=== PATIENT | female | born 1940 | race Two or more races ===

== ENCOUNTER 2021-05-01 23:01 | Inpatient (IN) | payer OTHER ==
[~2021-05-01] VITALS: Ht 160 cm; Wt 54.4 kg
--- NOTE | 2021-05-01 23:29 | NUR ---
BIBA FROM HOME ITALIAN SPEAKING, PT C/O LLQ PAIN X 2HOURS WITH SOB X 1 DAY. PT PLACED ON NC 6 LITER O2. CONNECTED TO MONITOR
[2021-05-02] VITALS (40 sets, daily range): BP systolic 51–160; BP diastolic 12–121
[2021-05-02] MEDS ORDERED: ONDANSETRON HCL/PF 4 MG/2 ML VIAL IVP ONE
[2021-05-02] MEDS ORDERED: HYDROMORPHONE INJ 2 MG/ML DISP.SYRIN IV ONE
[2021-05-02] MEDS ORDERED: ONDANSETRON HCL/PF 4 MG/2 ML VIAL ONE ×2 (00:15→13:29)
--- NOTE | 2021-05-02 00:30 | NUR ---
COVID SWAB COLLECTED AND SENT.
--- NOTE | 2021-05-02 00:33 | NUR ---
PT BACK FROM CT
[2021-05-02] MEDS ORDERED: HYDROMORPHONE INJ 2 MG/ML DISP.SYRIN ONE ×2 (00:39→04:06)
[2021-05-02 00:55] LABS: BASOPHILS % (AUTO) 0.3 % (0.0-2.0); EOSINOPHILS % (AUTO) 0.1 % (0.0-6.0); HEMATOCRIT 27 % (33-45); HEMOGLOBIN 8.7 g/dL (11.5-14.8); LYMPHOCYTES # (AUTO) 0.4 K/uL (0.8-4.8); LYMPHOCYTES % (AUTO) 7.7 % (20.0-44.0); MEAN CORPUSCULAR HGB CONC 32 g/dl (31.0-36.0); MEAN CORPUSCULAR VOLUME 82 fL (82-100); MONOCYTES # (AUTO) 0.1 K/uL (0.1-1.30); NEUTROPHILS % (AUTO) 89.9 % (43.0-81.0); PLATELET COUNT (AUTO) 688 K/uL (150-450); RED BLOOD CELL COUNT(AUTO) 3.26 MIL/uL (4.0-5.2); WHITE BLOOD COUNT (AUTO) 5.5 K/uL (4.3-11.0)
--- NOTE | 2021-05-02 00:56 | NUR ---
URINE COLLECTED AND SENT TO LAB
[2021-05-02 01:13] LABS: ALANINE AMINOTRANSFERASE 9 U/L (12-78); ALBUMIN 2.8 g/dL (3.4-5.0); ALKALINE PHOSPHATASE 74 U/L (46-116); ASPARTATE AMINOTRANSFERASE 11 U/L (15-37); BILIRUBIN,DIRECT 0.1 mg/dL (0.0-0.2); BILIRUBIN,TOTAL 0.3 mg/dL (0.2-1.0); CALCIUM, SERUM 8.5 mg/dL (8.5-10.1); CARBON DIOXIDE 33 mmol/L (21-32); CREATININE 1.1 mg/dL (0.6-1.3); LIPASE 283 U/L (73-393); TOTAL PROTEIN, SERUM 6.6 g/dL (6.4-8.2); UREA NITROGEN, BLOOD 18 mg/dL (7-18)
[2021-05-02 01:18] LABS: CHLORIDE 91 mmol/L (98-107); SODIUM SERUM 136 mmol/L (136-145)
[2021-05-02 01:22] LABS: POTASSIUM 2.4 mmol/L (3.5-5.1)
[2021-05-02 01:23] LABS: GLUCOSE 476 mg/dL (74-106)
[2021-05-02] MEDS ORDERED: IV NS 0.9% 250 ML IV ONE (01:41)
[2021-05-02] MEDS ORDERED: CT SWABBABLE VALVE TRANS SET 1 EA INFUS.SET MC ONE (01:41)
[2021-05-02] MEDS ORDERED: IOHEXOL-350 100 ML VIAL IV ONE (01:41)
--- NOTE | 2021-05-02 01:50 | NUR ---
PT PLACED ON NRB MASK 15L
[2021-05-02] MEDS ORDERED: IV PREMIX 0.45% NS + KCL 1,000 ML IV ONE (02:00)
[2021-05-02] MEDS ORDERED: POTASSIUM CHLORIDE 20 MEQ TAB.PRT.SR PO ONE ×2 (02:00→02:02)
--- NOTE | 2021-05-02 02:12 | NUR ---
PT OUT FOR CT ANGIO
--- NOTE | 2021-05-02 02:50 | NUR ---
PAGED EPIC FOR PANEL.
[2021-05-02] MEDS ORDERED: PIPERACILLIN /TAZOBACTAM 3.375 G VIAL IV ONE (02:55)
[2021-05-02] MEDS ORDERED: IV LR 1000 ML 1,000 ML IV ONE ×2 (03:00→03:30)
[2021-05-02] MEDS ORDERED: PIPERACILLIN /TAZOBACTAM 3.375 G in IV D5W 50 ML IV ONE (03:00)
--- NOTE | 2021-05-02 03:10 | NUR ---
EKG COMPLETED AT BEDSIDE
--- NOTE | 2021-05-02 03:13 | NUR ---
PAGED SIDRA DIRECTLY, NO ANSWER. MESSAGE IN VOICEMAIL WAS LEFT.
[2021-05-02 03:14] LABS: BILIRUBIN,URINE NEGATIVE (NEGATIVE); COLOR,URINE YELLOW (YELLOW); LEUKOCYTE ESTERASE ,URINE MODERATE (NEGATIVE); NITRITE, URINE NEGATIVE (NEGATIVE); PROTEIN,URINE NEGATIVE (NEGATIVE); UGLUCOSE >=1000 mg/dL (NEGATIVE); UROBILINOGEN,URINE 0.2 EU/dL (0.2)
[2021-05-02] MEDS ORDERED: Z GUARD REMEDY 4 OZ OINT TP PRN ×2 (03:30→04:15)
[2021-05-02] MEDS ORDERED: ACETAMINOPHEN 325 MG TABLET PO PRN ×2 (03:30→04:45)
[2021-05-02] MEDS ORDERED: ONDANSETRON HCL/PF 4 MG/2 ML VIAL IVP PRN ×2 (03:30→04:45)
[2021-05-02] MEDS ORDERED: HYDROMORPHONE INJ 2 MG/ML DISP.SYRIN IV PRN (03:30)
--- NOTE | 2021-05-02 03:39 | NUR ---
DR. FRIEND AT BEDSIDE. INFORMED CONSENT OBTAINED.
[2021-05-02] MEDS ORDERED: ROCURONIUM BROMIDE 50 MG/5 ML ONE (04:06)
[2021-05-02] MEDS ORDERED: ANESTHESIA TRAY IN PYXIS 1 EA TRAY MC ONE (04:06)
--- NOTE | 2021-05-02 04:40 | NUR ---
PATIENT TAKEN TO OR WITH RN ESCORT VIA GURNEY.
[2021-05-02] MEDS ORDERED: LIDOCAINE 1%-EPI 1:100,000 20 ML VIAL ONE (05:03)
[2021-05-02] MEDS ORDERED: BUPIVACAINE 0.5 % PF 150 MG/30 ML VIAL ONE (05:03)
[2021-05-02] MEDS ORDERED: MIDAZOLAM HCL 2 MG/2ML VIAL ONE (05:16)
[2021-05-02] MEDS ORDERED: NOREPINEPHRINE 4 MG/4 ML AMPUL IV ONE ×2 (05:25→05:52)
[2021-05-02] MEDS ORDERED: HYDROCORTISONE SOD SUCCINATE 100 MG/2 ML VIAL ONE (05:26)
[2021-05-02] MEDS ORDERED: ALBUTEROL FS 2.5 MG/3 ML VIAL.NEB ONE (05:27)
[2021-05-02] MEDS ORDERED: PIPERACILLIN /TAZOBACTAM 3.375 G in IV D5W 50 ML IV SCH (06:00)
[2021-05-02] MEDS ORDERED: methylPREDNISolone SOD SUCC 125 MG/2ML VIAL ONE (06:06)
--- NOTE | 2021-05-02 06:45 | NUR ---
ICU/RN: RECEIVED PT FROM OR ACCOMPANIED BY OR TEAM, DR. FRIEND, ANESTHESIOLOGIST DR. HYATT, AND REPARATORY TEAM. PT ORALLY INTUBATED SIZE 7 ETT 21CM AT THE LIP SECURED BY RESPIRATORY THERAPIST. STAT CRX AND ABG ORDERED. ORDERED RECEIVED FROM DR. HYATT AND DR. FRIEND. RIGHT AC #18 GAUGE IV INFUSING LEVO @0.1MCG/KG/HR. LACTATED RINGERS INFUSING WIDE OPEN. PT NOTED WITH 4 LAPAROSCOPIC INCISIONS AND 1 BRANDON DRAIN 70ML SEROSANGUINEOUS DRAINAGE EMPTIED. KENT CATH TO GRAVITY CLEAR YELLOW URINE 700ML EMPTIED. NGT PLACED AWAITING CXR FOR PLACEMENT. BED CLEVE LOWEST LOCKED POSITION. SIDE RAILS UP x2. NEW ORDERS ENDORSED TO EDGAR HE.
[2021-05-02 06:56] LABS: BACTERIA,URINE Moderate /HPF (None Seen); SQUAMOUS EPITHELIAL CELL,UR Few /HPF (None Seen)
[2021-05-02] MEDS ORDERED: PROPOFOL 100 ML IV PRN (07:00)
--- NOTE | 2021-05-02 07:01 | NUR ---
RT 6:40AM Patient transferred from OR to ICU 257-1 on vent. OR Doctor placed patient on given settings. Cable plugged into red outlet. Ambu bag at bed side. ET 7.0, 22 at lip.
--- NOTE | 2021-05-02 07:22 | NUR ---
RN NOTE PATIENT RECEIVED IN BED, INTUBATED ON A VENT, SATURATING AT 86%, RT AT BEDSIDE. PATIENT SEDATED. BRANDON DRAIN ON RIGHT ABD PATENT AND DRAINING CLEAR SANGUINEOUS DRAINAGE. L NARE NGT IN PLACE, WAITING ON PLACEMENT CONFIRMATION. LEFT AC AND RIGHT FA IV IN PLACE. BED LOCKED AND IN LOWEST POSITION, 3 SIDE RAILS UP, CALL LIGHT WITHIN REACH. WILL CONTINUE TO MONITOR.
[2021-05-02] MEDS: IV LR 1000 ML 1,000 ML IV PRN ×3 (07:50→20:47)
[2021-05-02] MEDS ORDERED: NOREPINEPHRINE 8 MG in IV NS 0.9% 242 ML IV PRN (08:00)
[2021-05-02] MEDS: PANTOPRAZOLE 40 MG VIAL IV SCH ×2 (08:24→16:58)
[2021-05-02] MEDS ORDERED: PANTOPRAZOLE 40 MG VIAL IV SCH ×2 (09:00)
[2021-05-02 09:29] LABS: BASOPHILS % (AUTO) 0.2 % (0.0-2.0); HEMATOCRIT 28 % (33-45); HEMOGLOBIN 8.9 g/dL (11.5-14.8); LYMPHOCYTES # (AUTO) 0.2 K/uL (0.8-4.8); LYMPHOCYTES % (AUTO) 4.8 % (20.0-44.0); MEAN CORPUSCULAR HGB CONC 32 g/dl (31.0-36.0); MEAN CORPUSCULAR VOLUME 84 fL (82-100); MONOCYTES # (AUTO) 0.2 K/uL (0.1-1.30); MONOCYTES % (AUTO) 4.3 % (2.0-12.0); NEUTROPHILS # (AUTO) 3.5 K/uL (1.8-8.9); NEUTROPHILS % (AUTO) 90.7 % (43.0-81.0); PLATELET COUNT (AUTO) 470 K/uL (150-450); RED BLOOD CELL COUNT(AUTO) 3.36 MIL/uL (4.0-5.2); WHITE BLOOD COUNT (AUTO) 3.9 K/uL (4.3-11.0)
--- NOTE | 2021-05-02 09:30 | NUR ---
et-tube pulled out to 20cm
[2021-05-02 09:41] LABS: ABG BASE EXCESS 1.1 mmol/L; ABG OXYGEN SATURATION 96.9 % (92.0-98.5); ABG PCO2 41.3 mmHg (35.0-45.0); ABG PH 7.414 (7.350-7.450); ABG PO2 94.2 mmHg (75.0-100.0); AaDO2 577.5 mmHg; COHb 0.3 % (0.5-1.5); MetHb 0.2 % (0.0-1.5); O2Hb 96.4 % (94.0-97.0); PEEP,BG 0 cm H2O; SITE, ABG Right Radial; VT, ABG 400 mL
[2021-05-02 10:34] LABS: CALCIUM, SERUM 8.2 mg/dL (8.5-10.1); CREATININE 1.2 mg/dL (0.6-1.3); MAGNESIUM 1.7 mg/dL (1.8-2.4); PHOSPHORUS 3.2 mg/dL (2.5-4.9)
[2021-05-02 10:39] LABS: POTASSIUM 2.7 mmol/L (3.5-5.1)
--- NOTE | 2021-05-02 10:48 | NUR ---
RN NOTE POTASSIUM OF 2.[address] AND ELEVATED SUGAR IN THE 500S REPORTED. ORDERED RECEIVED FOR AGGRESSIVE SLIDING SCALE AND 40MEQ OF POTASSIUM IV. WILL CONTINUE TO MONITOR.
[2021-05-02] MEDS ORDERED: DEXTROSE 50%-WATER 50 ML DISP.SYRIN IV PRN (11:00)
[2021-05-02] MEDS: POTASSIUM CL. PREMIX PERIPHER. 50 ML IV SCH ×4 (11:04→14:09)
[2021-05-02] MEDS ORDERED: BUPIVACAINE 0.25% 75 MG/30 ML VIAL MC ONE (11:11)
[2021-05-02] MEDS ORDERED: EPINEPHRINE (1:10,000) SYRINGE 1 MG/10 ML DISP.SYRIN IVP ONE (11:12)
[2021-05-02] MEDS: BLOOD SUGAR DIAGNOSTIC 1 EACH STRIP IN SCH ×2 (11:54→17:41)
[2021-05-02] MEDS: PIPERACILLIN /TAZOBACTAM 3.375 G in IV D5W 50 ML IV SCH ×2 (12:03→17:26)
[2021-05-02 13:07] LABS: THYROID STIMULATING HORMONE 0.734 uIU/mL (0.358-3.74)
[2021-05-02] MEDS ORDERED: CEFAZOLIN 1 GM VIAL ONE (13:29)
[2021-05-02] MEDS ORDERED: SUCCINYLCHOLINE CHLORIDE 20 MG/ML VIAL ONE (13:29)
[2021-05-02] MEDS ORDERED: ETOMIDATE 2 MG/ML VIAL ONE (13:29)
[2021-05-02] MEDS ORDERED: VECURONIUM 10 MG VIAL ONE (13:29)
[2021-05-02] MEDS: INSULIN REGULAR, HUMAN 100 UNIT/ML 3 ML VIAL SQ PRN ×2 (14:10→17:44)
[2021-05-02] MEDS: HYDROMORPHONE INJ 2 MG/ML DISP.SYRIN IV PRN ×2 (15:15→22:19)
[2021-05-02] MEDS: PROPOFOL 10MG/ML 50ML 50 ML IV PRN ×2 (16:01→22:16)
[2021-05-02 17:36] LABS: CHOLESTEROL 100 mg/dL (<200); HDL CHOLESTEROL 49 mg/dL (40-60); LDL 40 mg/dL (0-99); TRIGLYCERIDES 88 mg/dL (30-150)
[2021-05-02] MEDS: NOREPINEPHRINE 8 MG in IV NS 0.9% 242 ML IV PRN (17:55)
--- NOTE | 2021-05-02 19:01 | NUR ---
RN CLOSING NOTE PATIENT IN BED, SEDATED. PATIENT INTUBATED AND ON MECHANICAL VENTILATOR AT THIS TIME, SAT AT 100% WITH FIO2 OF 80%. BRANDON DRAIN IN PLACE ON RIGHT ABD, PATENT AND DRAINING SMALL AMOUNT OF DRAINAGE, TOTALING 110CC THROUGHOUT SHIFT. KENT CATHETER ON, PATENT AND DRAINING CLEAR URINE. LEFT AC IV, RIGHT FA IV AND RIGHT UA MIDLINE IN PLACE, ALL PATENT. LEVOPHED, PROPOFOL AND LR AT 175 CC/HR RUNNING, VITAL SIGNS STABLE AND MAINTAINED ORDERED PER DRIP PROTOCOL. NGT IN PLACE, ON LOW INT SUCTIONING AND SUCTIONED 150CC THROUGHOUT SHIFT. BED LOCKED AND IN LOWEST POSITION, CALL LIGHT WITHIN REACH, 3 SIDE RAILS UP. WILL ENDORSE TO REFUGE WORKER NURSE.
[2021-05-02] MEDS: INSULIN GLARGINE, 100 UNIT/ML CARTRIDGE SQ SCH (20:55)
[2021-05-03] VITALS (76 sets, daily range): BP systolic 66–143; BP diastolic 22–70
[2021-05-03] MEDS: PIPERACILLIN /TAZOBACTAM 3.375 G in IV D5W 50 ML IV SCH ×4 (00:03→17:50)
[2021-05-03] MEDS: BLOOD SUGAR DIAGNOSTIC 1 EACH STRIP IN SCH ×5 (00:04→23:10)
[2021-05-03] MEDS: INSULIN REGULAR, HUMAN 100 UNIT/ML 3 ML VIAL SQ PRN ×4 (00:14→23:09)
[2021-05-03] MEDS: IV LR 1000 ML 1,000 ML IV PRN ×3 (02:13→22:00)
[2021-05-03] MEDS: PROPOFOL 10MG/ML 50ML 50 ML IV PRN ×6 (03:37→21:24)
[2021-05-03] MEDS: HYDROMORPHONE INJ 2 MG/ML DISP.SYRIN IV PRN (03:46)
[2021-05-03 06:11] LABS: ALANINE AMINOTRANSFERASE 24 U/L (12-78); ALBUMIN 1.7 g/dL (3.4-5.0); ALKALINE PHOSPHATASE 45 U/L (46-116); ASPARTATE AMINOTRANSFERASE 36 U/L (15-37); BILIRUBIN,TOTAL 0.3 mg/dL (0.2-1.0); CALCIUM, SERUM 7.5 mg/dL (8.5-10.1); CARBON DIOXIDE 29 mmol/L (21-32); CHLORIDE 100 mmol/L (98-107); CREATININE 1.5 mg/dL (0.6-1.3); GLUCOSE 128 mg/dL (74-106); MAGNESIUM 1.3 mg/dL (1.8-2.4); PHOSPHORUS 2.7 mg/dL (2.5-4.9); POTASSIUM 3.1 mmol/L (3.5-5.1); SODIUM SERUM 139 mmol/L (136-145); TOTAL PROTEIN, SERUM 4.6 g/dL (6.4-8.2); UREA NITROGEN, BLOOD 23 mg/dL (7-18)
[2021-05-03] MEDS: NOREPINEPHRINE 8 MG in IV NS 0.9% 242 ML IV PRN ×2 (06:23→21:30)
[2021-05-03 07:21] LABS: THYROID STIMULATING HORMONE 0.358 uIU/mL (0.358-3.74)
[2021-05-03] MEDS: POTASSIUM CL. PREMIX PERIPHER. 50 ML IV SCH ×4 (08:11→12:55)
[2021-05-03] MEDS: PANTOPRAZOLE 40 MG VIAL IV SCH ×2 (08:12→17:50)
[2021-05-03] MEDS ORDERED: METO50TA16 PO (09:44)
[2021-05-03] MEDS ORDERED: ATOR10TA PO (09:44)
[2021-05-03] MEDS ORDERED: CHLO25TA2 PO (09:44)
[2021-05-03] MEDS ORDERED: ALLO100T PO (09:44)
[2021-05-03] MEDS: IV NS 0.9% 250 ML IV PRN (09:44)
[2021-05-03] MEDS ORDERED: DONE5TAB34 PO (09:44)
[2021-05-03] MEDS ORDERED: SITA1TAB6 PO (09:44)
[2021-05-03] MEDS: Magnesium 1GM/D5W 100ML PREMIX 100 ML IV SCH ×2 (09:47→11:41)
--- NOTE | 2021-05-03 10:26 | NUR ---
RT VENT WEANING ATTEMPTED. SEDATION TURNED OFF FOR THIRTY MIN. PATIENT PLACED ON SIMV 4, PS 12. PATIENT SHOWED SIGNS OF DISTRESSED. HR INCREASED TO 150. RR INCREASED TO 40. PATIENT WAS NON RESPONSIVE TO VERBAL COMMANDS. PATIENT FAILED WEANING. PATIENT PLACED BACK ON AC MODE AND SEDATION TURNED BACK ON.
[2021-05-03 12:33] LABS: BASOPHILS % (AUTO) 0.2 % (0.0-2.0); LYMPHOCYTES # (AUTO) 0.8 K/uL (0.8-4.8); LYMPHOCYTES % (AUTO) 6.2 % (20.0-44.0); MEAN CORPUSCULAR HGB CONC 32 g/dl (31.0-36.0); MEAN CORPUSCULAR VOLUME 81 fL (82-100); MONOCYTES # (AUTO) 0.3 K/uL (0.1-1.30); MONOCYTES % (AUTO) 2.6 % (2.0-12.0); NEUTROPHILS # (AUTO) 11.3 K/uL (1.8-8.9); PLATELET COUNT (AUTO) 393 K/uL (150-450); RED BLOOD CELL COUNT(AUTO) 2.43 MIL/uL (4.0-5.2); WHITE BLOOD COUNT (AUTO) 12.4 K/uL (4.3-11.0)
[2021-05-03 12:44] LABS: HEMATOCRIT 20 % (33-45); HEMOGLOBIN 6.2 g/dL (11.5-14.8)
[2021-05-03 13:19] LABS: BAND % (MANUAL) 3 % (0.0-5.0); LYMPHOCYTES % (MANUAL) 6 % (16-48); MONOCYTES % (MANUAL) 3 % (0-11.0); NEUTROPHILS % (MANUAL) 88 (42-76)
[2021-05-03] MEDS: SOD FERRIC GLUC 125 MG in IV NS 0.9% 100 ML IV SCH (16:38)
[2021-05-03] MEDS: INSULIN GLARGINE, 100 UNIT/ML CARTRIDGE SQ SCH (23:08)
[2021-05-04] VITALS (89 sets, daily range): BP systolic 74–189; BP diastolic 36–97
[2021-05-04] MEDS: PIPERACILLIN /TAZOBACTAM 3.375 G in IV D5W 50 ML IV SCH ×4 (00:03→18:04)
[2021-05-04] MEDS: PROPOFOL 10MG/ML 50ML 50 ML IV PRN ×7 (02:05→23:13)
[2021-05-04] MEDS: INSULIN REGULAR, HUMAN 100 UNIT/ML 3 ML VIAL SQ PRN (05:16)
[2021-05-04] MEDS: BLOOD SUGAR DIAGNOSTIC 1 EACH STRIP IN SCH ×4 (05:24→23:13)
[2021-05-04 08:21] LABS: ABG BASE EXCESS 1.7 mmol/L; ABG OXYGEN SATURATION 94.2 % (92.0-98.5); ABG PCO2 38.9 mmHg (35.0-45.0); ABG PH 7.442 (7.350-7.450); ABG PO2 70.1 mmHg (75.0-100.0); AaDO2 242.6 mmHg; COHb 0.3 % (0.5-1.5); MetHb 0.1 % (0.0-1.5); O2Hb 93.8 % (94.0-97.0); SITE, ABG Left Radial; VENT MODE, BG AC 16 400 50% +0
[2021-05-04] MEDS: PANTOPRAZOLE 40 MG VIAL IV SCH ×2 (08:48→18:04)
[2021-05-04] MEDS: IV LR 1000 ML 1,000 ML IV PRN ×2 (08:58→19:20)
[2021-05-04 09:43] LABS: BASOPHILS % (AUTO) 0.1 % (0.0-2.0); EOSINOPHILS % (AUTO) 0.1 % (0.0-6.0); HEMATOCRIT 23 % (33-45); HEMOGLOBIN 7.6 g/dL (11.5-14.8); LYMPHOCYTES # (AUTO) 0.7 K/uL (0.8-4.8); LYMPHOCYTES % (AUTO) 4.9 % (20.0-44.0); MEAN CORPUSCULAR HGB CONC 33 g/dl (31.0-36.0); MEAN CORPUSCULAR VOLUME 83 fL (82-100); MONOCYTES # (AUTO) 0.3 K/uL (0.1-1.30); MONOCYTES % (AUTO) 2.3 % (2.0-12.0); NEUTROPHILS # (AUTO) 12.4 K/uL (1.8-8.9); NEUTROPHILS % (AUTO) 92.6 % (43.0-81.0); PLATELET COUNT (AUTO) 319 K/uL (150-450); RED BLOOD CELL COUNT(AUTO) 2.82 MIL/uL (4.0-5.2); WHITE BLOOD COUNT (AUTO) 13.4 K/uL (4.3-11.0)
[2021-05-04 09:57] LABS: CALCIUM, SERUM 7.6 mg/dL (8.5-10.1); CREATININE 1.2 mg/dL (0.6-1.3)
[2021-05-04] MEDS: POTASSIUM CL. PREMIX PERIPHER. 50 ML IV SCH ×4 (13:24→18:05)
[2021-05-04] MEDS: SOD FERRIC GLUC 125 MG in IV NS 0.9% 100 ML IV SCH (15:11)
[2021-05-04] MEDS: NOREPINEPHRINE 8 MG in IV NS 0.9% 242 ML IV PRN (18:45)
[2021-05-04] MEDS: HYDROMORPHONE INJ 2 MG/ML DISP.SYRIN IV PRN (19:07)
[2021-05-04] MEDS: MEROPENEM 1 G in IV NS 0.9% 100 ML IV SCH (21:38)
[2021-05-04] MEDS: FLUCONAZOLE IN NS 100 MG in PREMIX 1 EA IV SCH ×2 (21:38)
[2021-05-04] MEDS ORDERED: VANCOMYCIN 0.75 GM in IV D5W 250 ML IV ONE (22:00)
[2021-05-04] MEDS: INSULIN GLARGINE, 100 UNIT/ML CARTRIDGE SQ SCH (22:00)
[2021-05-05] VITALS (87 sets, daily range): BP systolic 82–169; BP diastolic 41–94
--- NOTE | 2021-05-05 02:00 | NUR ---
icu/rn tori care provided.redness on the lower back noted.due meds are given as ordered.continue monitoring.
[2021-05-05] MEDS: PROPOFOL 10MG/ML 50ML 50 ML IV PRN ×3 (02:33→08:00)
--- NOTE | 2021-05-05 03:08 | NUR ---
RN NOTE ICU REC'D REPORT FROM KAMAR HE FOR CONTINUATION OF CARE. PT IS SEDATED, APPEARS COMFORTABLE ON CURRENT VENT SETTINGS. PT IS AFEBRILE. NO DISTRESS NOTED. TELE SR 90S. O2 SAT WNL 100% BRANDON DRAIN NOTED ON RIGHT ABD, CONTENTS SEROUS, IV SITES INTACT. DIPRIVAN RUNNING AND LEVO ORDERED. NGT AUSC FOR PLACEMENT, FLUSHED. CLAMPED. HOB ELEVATED BED LOCKED IN LOWEST POSITION SIDE RAILS UP X2, WILL CONT TO MONITOR CLOSELY.
[2021-05-05] MEDS: BLOOD SUGAR DIAGNOSTIC 1 EACH STRIP IN SCH ×3 (05:53→17:21)
[2021-05-05] MEDS: INSULIN REGULAR, HUMAN 100 UNIT/ML 3 ML VIAL SQ PRN ×3 (05:56→17:22)
[2021-05-05] MEDS: IV LR 1000 ML 1,000 ML IV PRN ×2 (05:57→16:38)
[2021-05-05 06:29] LABS: BASOPHILS % (AUTO) 0.2 % (0.0-2.0); EOSINOPHILS % (AUTO) 1.8 % (0.0-6.0); HEMATOCRIT 23 % (33-45); HEMOGLOBIN 7.5 g/dL (11.5-14.8); LYMPHOCYTES # (AUTO) 0.8 K/uL (0.8-4.8); LYMPHOCYTES % (AUTO) 7.8 % (20.0-44.0); MEAN CORPUSCULAR HGB CONC 33 g/dl (31.0-36.0); MEAN CORPUSCULAR VOLUME 83 fL (82-100); MONOCYTES # (AUTO) 0.3 K/uL (0.1-1.30); MONOCYTES % (AUTO) 2.7 % (2.0-12.0); NEUTROPHILS # (AUTO) 8.7 K/uL (1.8-8.9); NEUTROPHILS % (AUTO) 87.5 % (43.0-81.0); PLATELET COUNT (AUTO) 210 K/uL (150-450); RED BLOOD CELL COUNT(AUTO) 2.74 MIL/uL (4.0-5.2); WHITE BLOOD COUNT (AUTO) 9.9 K/uL (4.3-11.0)
[2021-05-05 07:21] LABS: BILIRUBIN,TOTAL 0.6 mg/dL (0.2-1.0); CALCIUM, SERUM 7.7 mg/dL (8.5-10.1); CREATININE 1.1 mg/dL (0.6-1.3); MAGNESIUM 1.8 mg/dL (1.8-2.4); PHOSPHORUS 2.8 mg/dL (2.5-4.9); TOTAL PROTEIN, SERUM 4.5 g/dL (6.4-8.2)
[2021-05-05 07:46] LABS: ALBUMIN 1.4 g/dL (3.4-5.0)
[2021-05-05] MEDS: MEROPENEM 1 G in IV NS 0.9% 100 ML IV SCH ×2 (08:29→20:00)
[2021-05-05] MEDS: PANTOPRAZOLE 40 MG VIAL IV SCH ×2 (08:29→17:31)
[2021-05-05 08:35] LABS: ABG BASE EXCESS 1.6 mmol/L; ABG OXYGEN SATURATION 93.8 % (92.0-98.5); ABG PCO2 39.1 mmHg (35.0-45.0); ABG PH 7.439 (7.350-7.450); ABG PO2 65.7 mmHg (75.0-100.0); AaDO2 174.5 mmHg; COHb 0.1 % (0.5-1.5); MetHb 0.3 % (0.0-1.5); O2Hb 93.4 % (94.0-97.0); SITE, ABG Left Radial
[2021-05-05] MEDS: VANCOMYCIN 500 MG in IV D5W 100 ML IV SCH ×2 (08:59→20:30)
[2021-05-05] MEDS: NOREPINEPHRINE 8 MG in IV NS 0.9% 242 ML IV PRN (09:47)
[2021-05-05] MEDS ORDERED: POTASSIUM CL. PREMIX PERIPHER. 50 ML IV SCH (10:00)
[2021-05-05] MEDS: POTASSIUM CL. PREMIX PERIPHER. 50 ML IV SCH ×6 (10:46→16:35)
[2021-05-05] MEDS: SOD FERRIC GLUC 125 MG in IV NS 0.9% 100 ML IV SCH (16:35)
--- NOTE | 2021-05-05 18:51 | NUR ---
RN NOTE PLAN OF CARE RENDERED, SAFETY MEASURES OBSERVED, CALL LIGHT WITHIN REACH, WILL ENDORSE TO NOC SHIFT.
--- NOTE | 2021-05-05 19:35 | NUR ---
COMPRESSOR STATION CHIEF ENGINEER BRANDON NOTED WITH 75 ML SEROSANGUINEOUS OUTPUT
--- NOTE | 2021-05-05 20:45 | NUR ---
THREADING MACHINE OPERATOR PT NOTED WITH HR 134 BP 86/47 SATURATION 78%; SUCTIONED BY RT
[2021-05-05] MEDS: FLUCONAZOLE IN NS 100 MG in PREMIX 1 EA IV SCH ×2 (21:30)
[2021-05-05] MEDS: INSULIN GLARGINE, 100 UNIT/ML CARTRIDGE SQ SCH (22:00)
[2021-05-05] MEDS: ACETAMINOPHEN 650 MG/SUPP.RECT RC PRN (22:38)
--- NOTE | 2021-05-05 23:20 | NUR ---
SKIN CARE THERAPIST HR 170; EKG SHOWS WIDE QRS TACHYCARDIA W/RBBB; MD MADE AWARE
--- NOTE | 2021-05-05 23:40 | NUR ---
CORE ANALYSIS OPERATOR ER MD CALLED FOR INTUBATION; S/P SELF EXTUBATION. PT NOTED TO BECOME JENNY AT 2334 ONE AMP EPI GIVEN; PT INTUBATED AT 2340 W/ET TUBE 7 @ 24; CXR REQUESTED.
--- NOTE | 2021-05-05 23:46 | NUR ---
RT pt reintubated post self extubation. pt reintubated with ett size 7.0 at 24@lip at 2340. ett verified with co2 color change and bilateral chest rise. pt placed on vent with settings: AC 16 400 100%. ambu bag at bedside. will continue to monitor.
[2021-05-06] VITALS (50 sets, daily range): BP systolic 94–147; BP diastolic 45–104
[2021-05-06] MEDS: BLOOD SUGAR DIAGNOSTIC 1 EACH STRIP IN SCH ×4 (00:04→17:48)
--- NOTE | 2021-05-06 00:10 | NUR ---
LIQUID FERTILIZER SERVICER RCD CALL FROM [facility] TO WITHDRAW ET TUBE BY 4 CM; DR CAMPOS MADE AWARE W/ORDER TO ADJUST TUBE; TUBE ADJUSTED BY RT; ET TUBE @ 20
--- NOTE | 2021-05-06 00:22 | NUR ---
RT ett pulled out 4 cm per md order
--- NOTE | 2021-05-06 00:45 | NUR ---
SALESPERSON MEN'S HATS FIO2 DECREASED TO 70% POST ABG; PH 7.374 PCO2 38.2 PO2 122.6 HCO3 122.6
--- NOTE | 2021-05-06 02:30 | NUR ---
SETTER HELPER BRANDON OUTPUT DOCUMENTED IN DRAINAGE AMOUNT
[2021-05-06 02:43] LABS: ABG BASE EXCESS -3.1 mmol/L; ABG OXYGEN SATURATION 97.9 % (92.0-98.5); ABG PCO2 38.2 mmHg (35.0-45.0); ABG PH 7.374 (7.350-7.450); ABG PO2 122.6 mmHg (75.0-100.0); AaDO2 552.2 mmHg; COHb 0.1 % (0.5-1.5); MetHb 0.2 % (0.0-1.5); O2Hb 97.6 % (94.0-97.0); SITE, ABG Right Radial; VENT MODE, BG AC 16 400 100%
[2021-05-06] MEDS: IV LR 1000 ML 1,000 ML IV PRN ×4 (03:05→21:30)
[2021-05-06 05:44] LABS: OCCULT BLOOD STOOL NEGATIVE (NEGATIVE)
[2021-05-06 05:45] LABS: BASOPHILS % (AUTO) 0.2 % (0.0-2.0); EOSINOPHILS % (AUTO) 1.5 % (0.0-6.0); HEMATOCRIT 23 % (33-45); HEMOGLOBIN 7.6 g/dL (11.5-14.8); LYMPHOCYTES # (AUTO) 0.7 K/uL (0.8-4.8); LYMPHOCYTES % (AUTO) 7.3 % (20.0-44.0); MEAN CORPUSCULAR HGB CONC 33 g/dl (31.0-36.0); MEAN CORPUSCULAR VOLUME 83 fL (82-100); MONOCYTES # (AUTO) 0.5 K/uL (0.1-1.30); MONOCYTES % (AUTO) 5.4 % (2.0-12.0); NEUTROPHILS # (AUTO) 8.1 K/uL (1.8-8.9); NEUTROPHILS % (AUTO) 85.6 % (43.0-81.0); PLATELET COUNT (AUTO) 220 K/uL (150-450); RED BLOOD CELL COUNT(AUTO) 2.81 MIL/uL (4.0-5.2); WHITE BLOOD COUNT (AUTO) 9.5 K/uL (4.3-11.0)
[2021-05-06 05:56] LABS: CALCIUM, SERUM 7.7 mg/dL (8.5-10.1); CARBON DIOXIDE 27 mmol/L (21-32); CHLORIDE 106 mmol/L (98-107); CREATININE 0.9 mg/dL (0.6-1.3); GLUCOSE 137 mg/dL (74-106); MAGNESIUM 1.7 mg/dL (1.8-2.4); PHOSPHORUS 3.6 mg/dL (2.5-4.9); POTASSIUM 3.2 mmol/L (3.5-5.1); SODIUM SERUM 140 mmol/L (136-145); UREA NITROGEN, BLOOD 13 mg/dL (7-18)
--- NOTE | 2021-05-06 07:40 | NUR ---
ICU OPENING NOTES Patient is on vent tolerating well and on 02 saturation noted to be 99 %. Right upper arm picc line running Normal saline at 100 cc/hour.Patient noted with bautista cath with clear yellow urine. Ngtube running to low intermmitent suction. Patient noted with Mustapha drainage of serous output . Patient will be turned and repositioned. Will continue to monitor.
[2021-05-06] MEDS: MEROPENEM 1 G in IV NS 0.9% 100 ML IV SCH ×2 (08:42→20:27)
[2021-05-06] MEDS: PANTOPRAZOLE 40 MG VIAL IV SCH ×2 (08:53→17:37)
[2021-05-06] MEDS ORDERED: ROCURONIUM BROMIDE 50 MG/5 ML IV ONE (10:18)
[2021-05-06] MEDS: POTASSIUM CL. PREMIX PERIPHER. 50 ML IV SCH ×4 (10:39→13:51)
[2021-05-06] MEDS ORDERED: DIATR MEGLU/DIATRIZOATE SODIUM 120 ML BOTTLE (GASTROGRAPHIN) ONE (10:51)
[2021-05-06] MEDS: Magnesium 1GM/D5W 100ML PREMIX 100 ML IV SCH ×2 (11:33→12:36)
[2021-05-06] MEDS: VANCOMYCIN 500 MG in IV D5W 100 ML IV SCH ×2 (11:36→21:06)
[2021-05-06] MEDS: INSULIN REGULAR, HUMAN 100 UNIT/ML 3 ML VIAL SQ PRN ×2 (13:17→17:49)
[2021-05-06] MEDS: SOD FERRIC GLUC 125 MG in IV NS 0.9% 100 ML IV SCH (15:05)
--- NOTE | 2021-05-06 19:37 | NUR ---
RN NOTE RECEIVED PATIENT IN BED, EYES CLOSED, MOVES TO LOCALIZED PAIN. INTUBATED. NO SEDATION. VENT SETTINGS OF AC: 16, TV: 400, FIO2: 30, PEEP: 0.0. BREATHING EVEN AND UNLABORED. TOLERATING WELL. PATIENT SUCTIONED. ON TELE MONITORING, SINUS RHYTHM AT 99 BPM. SKIN WARM AND DRY. NOTED WITH RIGHT UPPER ARM PICC LINE, NO BLEEDING/INFILTRATION NOTED. RUNNING LACTATED RINGER AT 100 ML/HR. NOTED WITH RIGHT FOREARM 20G PERIPHERAL IV, INTACT. NOTED WITH BRANDON DRAIN, DRAINING WELL. NO BLEEDING NOTED. NOTED WITH KENT CATHETER IN PLACE, DRAINING YELLOW, CLOUDY URINE, NO HEMATURIA. NOTED WITH BILATERAL SOFT WRIST RESTRAINTS, CAPILLARY REFILL WNL, 2 FINGER SPACE OBSERVED. BED LOW, IN LOCKED POSITION. CALL LIGHT WITHIN REACH.
--- NOTE | 2021-05-06 19:48 | NUR ---
ICU CLOSING NOTES Patient is on vent tolerating well and on 02 saturation noted to be 97 %. Right upper arm picc line running Normal saline at 100 cc/hour.Patient noted with bautista cath with clear yellow urine with output of 900 cc. Ngtube running to low intermmitent suction with output of 200 cc. Patient noted with Mustapah drainage of serous output . Endorsed to next shift for TEENA. Will continue to monitor.
[2021-05-06] MEDS: INSULIN GLARGINE, 100 UNIT/ML CARTRIDGE SQ SCH (21:29)
[2021-05-06] MEDS: FLUCONAZOLE IN NS 100 MG in PREMIX 1 EA IV SCH ×2 (22:09)
[2021-05-07] VITALS (29 sets, daily range): BP systolic 100–150; BP diastolic 47–96
[2021-05-07] MEDS: BLOOD SUGAR DIAGNOSTIC 1 EACH STRIP IN SCH ×5 (00:11→23:31)
[2021-05-07 05:14] LABS: CALCIUM, SERUM 7.8 mg/dL (8.5-10.1); CARBON DIOXIDE 26 mmol/L (21-32); CHLORIDE 105 mmol/L (98-107); CREATININE 0.7 mg/dL (0.6-1.3); GLUCOSE 94 mg/dL (74-106); MAGNESIUM 1.7 mg/dL (1.8-2.4); PHOSPHORUS 2.5 mg/dL (2.5-4.9); SODIUM SERUM 139 mmol/L (136-145); UREA NITROGEN, BLOOD 9 mg/dL (7-18)
[2021-05-07 05:16] LABS: BASOPHILS % (AUTO) 0.3 % (0.0-2.0); EOSINOPHILS % (AUTO) 3.2 % (0.0-6.0); HEMATOCRIT 21 % (33-45); LYMPHOCYTES # (AUTO) 0.6 K/uL (0.8-4.8); LYMPHOCYTES % (AUTO) 9.2 % (20.0-44.0); MEAN CORPUSCULAR HGB CONC 33 g/dl (31.0-36.0); MEAN CORPUSCULAR VOLUME 84 fL (82-100); MONOCYTES # (AUTO) 0.3 K/uL (0.1-1.30); MONOCYTES % (AUTO) 5.4 % (2.0-12.0); NEUTROPHILS # (AUTO) 5.1 K/uL (1.8-8.9); NEUTROPHILS % (AUTO) 81.9 % (43.0-81.0); PLATELET COUNT (AUTO) 202 K/uL (150-450); RED BLOOD CELL COUNT(AUTO) 2.48 MIL/uL (4.0-5.2); WHITE BLOOD COUNT (AUTO) 6.3 K/uL (4.3-11.0)
[2021-05-07 05:47] LABS: POTASSIUM 2.3 mmol/L (3.5-5.1)
--- NOTE | 2021-05-07 05:49 | NUR ---
RN NOTE RECEIVED CALL FROM [facility], CRITICAL LABS, HEMOGLOBIN VALUE OF 6.8 AND POTASSIUM VALUE OF 2.3. RELAYED MESSAGE TO MD CAMPOS, AWAITING ORDERS.
[2021-05-07 05:58] LABS: HEMOGLOBIN 6.8 g/dL (11.5-14.8)
--- NOTE | 2021-05-07 06:00 | NUR ---
RN NOTE PER ANDRES CELESTE, REGARDING CRITICAL LABS, GIVE 1 UNIT PRBC AND GIVE TOTAL OF 100 MEQ POTASSIUM REPLACEMENT. NOTED AND CARRIED OUT.
[2021-05-07] MEDS: IV LR 1000 ML 1,000 ML IV PRN ×2 (06:02→18:31)
[2021-05-07] MEDS ORDERED: POTASSIUM CL. PREMIX PERIPHER. 50 ML IV SCH ×2 (06:30→08:00)
--- NOTE | 2021-05-07 07:10 | NUR ---
RN NOTE FIRST 10 MEQ OF POTASSIUM CURRENTLY INFUSING, ENDORSED TO NEXT SHIFT.
[2021-05-07] MEDS: POTASSIUM CL. PREMIX PERIPHER. 50 ML IV SCH ×9 (07:50→16:02)
[2021-05-07] MEDS: MEROPENEM 1 G in IV NS 0.9% 100 ML IV SCH ×2 (08:04→21:44)
[2021-05-07] MEDS: PANTOPRAZOLE 40 MG VIAL IV SCH ×2 (08:04→16:02)
[2021-05-07] MEDS: VANCOMYCIN 500 MG in IV D5W 100 ML IV SCH ×2 (08:51→20:29)
[2021-05-07] MEDS: Magnesium 1GM/D5W 100ML PREMIX 100 ML IV SCH ×2 (09:52→10:54)
[2021-05-07 10:34] LABS: EOSINOPHILS % (MANUAL) 6 % (0-4); LYMPHOCYTES % (MANUAL) 9 % (16-48); MONOCYTES % (MANUAL) 4 % (0-11.0); NEUTROPHILS % (MANUAL) 81 (42-76)
[2021-05-07] MEDS: SOD FERRIC GLUC 125 MG in IV NS 0.9% 100 ML IV SCH (14:19)
--- NOTE | 2021-05-07 15:35 | NUR ---
RN NOTE 1 UNIT PRBC STARTED, VITAL SIGNS STABLE AFTER FIRST 15 MINUTES. WILL CONTINUE TO MONITOR.
--- NOTE | 2021-05-07 17:00 | NUR ---
RN NOTE LAST IVPB OF POTASSIUM SUPPLEMENT FINISHED. LABS DRAWN PER ORDER. WILL CONTINUE TO MONITOR.
--- NOTE | 2021-05-07 17:36 | NUR ---
RN NOTE 1 UNIT PRBC COMPLETED. PATIENT TOLERATED WELL. VITAL SIGNS STABLE. WILL CONTINUE TO MONITOR.
--- NOTE | 2021-05-07 18:58 | NUR ---
RN CLOSING NOTE PATIENT REMAINS IN BED, NONVERBAL. PATIENT WITH ET TUBE IN PLACE AND ON MECHANICAL VENTILATION WITH FIO2 40%. KENT CATH IN PLACE. NG TUBE IN PLACE ON INTERMITTENT SUCTIONING WITH A TOTAL OF 200CC OUTPUT THROUGHOUT SHIFT. RIGHT UA PICC AND RIGHT FA 20G PIV IN PLACE AND PATENT, RUNNING LR AT 100 CC/HR. ALL NEEDS ATTENDED DURING SHIFT, BED LOCKED AND IN LOWEST POSITION, CALL LIGHT WITHIN REACH, 2 SIDE RAILS UP. WILL ENDORSE TO CARPENTRY SPECIALIST NURSE.
--- NOTE | 2021-05-07 19:37 | NUR ---
RN NOTE RECEIVED PATIENT IN BED, DROWSY, ABLE TO OPEN EYES TO TOUCH. BREATHING EVEN AND UNLABORED AT THIS TIME. ET TUBE PRESENT, ON VENT, WITH VENT SETTINGS AC: 16, TV: 400, FIO2: 40%, PEEP: 0. TOLERATING WELL. ON TELE MONITORING SINUS RHYTHM AT THIS TIME. SKIN WARM AN DRY. NOTED WITH NGT ON LEFT NARE, ON INTERMITTENT WALL SUCTION. DRAINING YELLOW FLUID. NOTED WITH RIGHT UPPER ARM PICC LINE, RUNNING LR AT 100 ML/HR, ALSO WITH RFA 20G. NO INFILTRATION NOTED. PATIENT WITH KENT CATHETER DRAINING YELLOW URINE, NOTED WITH BILATERAL SOFT WRIST RESTRAINTS. 2 FINGER SPACE OBSERVED. WITH SCD ON BILATERAL LOWER EXTREMITY. BED LOW, IN LOCKED POSITION. CALL LIGHT WITHIN REACH. WILL CONTINUE TO MONITOR. Addendum: 05/07/21 at 1944 by HOANG FLOWERS RN PATIENT ALSO NOTED WITH BRANDON DRAIN, NO BLEEDING NOTED.
[2021-05-07] MEDS: INSULIN GLARGINE, 100 UNIT/ML CARTRIDGE SQ SCH (22:00)
[2021-05-07] MEDS: FLUCONAZOLE IN NS 100 MG in PREMIX 1 EA IV SCH ×2 (22:15)
[2021-05-08] VITALS (24 sets, daily range): BP systolic 104–148; BP diastolic 47–82
[2021-05-08] MEDS: IV LR 1000 ML 1,000 ML IV PRN (02:45)
[2021-05-08] MEDS: BLOOD SUGAR DIAGNOSTIC 1 EACH STRIP IN SCH ×3 (05:12→17:59)
--- NOTE | 2021-05-08 05:51 | NUR ---
YING NOTE ABG RESULT ARE FOLLOWS, PH: 7.47, PCO2: 30.2, PO2: 123.4, HCO3 21.6. VENT SETTINGS OF AC 16, TV 400, FIO2 40%, PEEP 0. Addendum: 05/08/21 at 0607 by HOANG FLOWERS RN RT DECREASED FIO2 FROM 40 TO 30 PERCENT
[2021-05-08 06:03] LABS: CALCIUM, SERUM 7.7 mg/dL (8.5-10.1); CARBON DIOXIDE 25 mmol/L (21-32); CREATININE 0.6 mg/dL (0.6-1.3); GLUCOSE 80 mg/dL (74-106); MAGNESIUM 1.7 mg/dL (1.8-2.4); PHOSPHORUS 2.1 mg/dL (2.5-4.9); UREA NITROGEN, BLOOD 7 mg/dL (7-18)
[2021-05-08] MEDS: IV NS 0.9% 250 ML IV PRN (06:22)
[2021-05-08 06:32] LABS: CHLORIDE 104 mmol/L (98-107); SODIUM SERUM 137 mmol/L (136-145)
[2021-05-08 06:37] LABS: BASOPHILS % (AUTO) 0.6 % (0.0-2.0); EOSINOPHILS % (AUTO) 3.6 % (0.0-6.0); HEMATOCRIT 24 % (33-45); HEMOGLOBIN 7.9 g/dL (11.5-14.8); LYMPHOCYTES # (AUTO) 0.6 K/uL (0.8-4.8); LYMPHOCYTES % (AUTO) 9.7 % (20.0-44.0); MEAN CORPUSCULAR HGB CONC 33 g/dl (31.0-36.0); MEAN CORPUSCULAR VOLUME 83 fL (82-100); MONOCYTES # (AUTO) 0.4 K/uL (0.1-1.30); MONOCYTES % (AUTO) 6.1 % (2.0-12.0); NEUTROPHILS # (AUTO) 4.9 K/uL (1.8-8.9); PLATELET COUNT (AUTO) 210 K/uL (150-450); RED BLOOD CELL COUNT(AUTO) 2.88 MIL/uL (4.0-5.2); WHITE BLOOD COUNT (AUTO) 6.1 K/uL (4.3-11.0)
[2021-05-08 06:49] LABS: POTASSIUM 2.7 mmol/L (3.5-5.1)
[2021-05-08] MEDS: MEROPENEM 1 G in IV NS 0.9% 100 ML IV SCH ×2 (08:36→20:17)
[2021-05-08] MEDS: POTASSIUM CL. PREMIX PERIPHER. 50 ML IV SCH ×10 (10:12→17:09)
[2021-05-08] MEDS: VANCOMYCIN 500 MG in IV D5W 100 ML IV SCH ×2 (10:32→21:21)
[2021-05-08] MEDS: Magnesium 1GM/D5W 100ML PREMIX 100 ML IV SCH ×2 (10:32→12:06)
[2021-05-08] MEDS ORDERED: POTASSIUM PHOSPHATE MM 15 MMOL in IV NS 0.9% 250 ML IV SCH (11:00)
[2021-05-08] MEDS: PANTOPRAZOLE 40 MG VIAL IV SCH ×2 (11:08→17:59)
[2021-05-08] MEDS ORDERED: Magnesium 1GM/D5W 100ML PREMIX 100 ML IV SCH (12:30)
--- NOTE | 2021-05-08 13:20 | NUR ---
RN NOTES PT EXTUBATED AT 1310. NOW ON 6L NC.
[2021-05-08] MEDS: INSULIN REGULAR, HUMAN 100 UNIT/ML 3 ML VIAL SQ PRN (14:41)
--- NOTE | 2021-05-08 15:33 | NUR ---
RN NOTES DID NOT GIVE MAG DUE TO PHARMACY MAKING EXTRA ORDER. 2 BAGS OF MAGNESIUM GIVEN TOTAL.
[2021-05-08 15:48] LABS: CALCIUM, SERUM 7.7 mg/dL (8.5-10.1); CREATININE 0.6 mg/dL (0.6-1.3); POTASSIUM 4.7 mmol/L (3.5-5.1)
--- NOTE | 2021-05-08 17:02 | NUR ---
RN NOTES BMP ORDERED AT FOR 1500. POTASSIUM IS NOW 4.7. WILL HOLD NEXT DOSES PER DR. TANNER ORDER.
--- NOTE | 2021-05-08 19:11 | NUR ---
RN CLOSING NOTE PATIENT REMAINS IN BED, NONVERBAL. PATIENT WITH ET TUBE IN PLACE AND ON 6L NC. KENT CATH IN PLACE. NG TUBE IN PLACE ON INTERMITTENT SUCTIONING WITH A TOTAL OF 200CC OUTPUT THROUGHOUT SHIFT. RIGHT UA PICC AND RIGHT FA 20G PIV IN PLACE AND PATENT, RUNNING LR AT 100 CC/HR. ALL NEEDS ATTENDED DURING SHIFT, BED LOCKED AND IN LOWEST POSITION, CALL LIGHT WITHIN REACH, 2 SIDE RAILS UP. WILL ENDORSE TO INTEGRATED SPECIALIST NURSE.
--- NOTE | 2021-05-08 19:20 | NUR ---
EXPERIMENTAL ROCKET SLED MECHANIC NOTE RECEIVED PATIENT IN BED NONVERBAL S/P EXTUBATION ON 6L OXYGEN VIA NASAL CANNULA O2:98% IV SITE IS ON RIGHT UPPER ARM PICC LINE INTACT PATENT,ON LACTATED RINGER 100CC/HR BILATERAL UPPER EXTREMITIES EDEMA, KENT CATHETER IN PLACE URINE DRAINING YELLOW/CLEAR BY GRAVITY,SAFETY MEASURE IMPLEMENT HEAD OF THE BED ELEVATED CONTINUE TO MONITOR.
[2021-05-08] MEDS: FLUCONAZOLE IN NS 100 MG in PREMIX 1 EA IV SCH ×2 (20:16)
[2021-05-08] MEDS: INSULIN GLARGINE, 100 UNIT/ML CARTRIDGE SQ SCH (21:53)
--- NOTE | 2021-05-08 22:00 | NUR ---
RN NOTE HOLD LANTUS AT 22:00 PATIENT IS NPO AND BLOOD SUGAR IS 129,CONTINUE TO MONITOR.
[2021-05-09] VITALS (35 sets, daily range): BP systolic 77–170; BP diastolic 32–91
[2021-05-09] MEDS: BLOOD SUGAR DIAGNOSTIC 1 EACH STRIP IN SCH ×4 (00:22→18:09)
[2021-05-09] MEDS: IV LR 1000 ML 1,000 ML IV PRN ×2 (03:15→18:03)
--- NOTE | 2021-05-09 06:00 | NUR ---
RN NOTE YA GIANG SEEN THE PATIENT AND ORDERED TO TAKE OFF RINGS FORM FINGER,BECAUSE FINGERS SWELLING CALLED [facility] [employer] [employer] HE SAID OK IF NEED TO CUT RINGS TO TAKE OFF ENDORSE MORNING SHIFT TO FOLLOW UP
--- NOTE | 2021-05-09 06:42 | NUR ---
PROCESSING ENGINEER NOTE PATIENT REMAINS ON ALERT ON 6L OXYGEN VIA NASAL CANNULA O2:99% AND ON NGT INTERMEDIATE SUCTION 200CC OUT PUT,IV SITE IS ON RIGHT UPPER ARM PICC LINE INTACT PATENT ON LACTATED RINGER IV HYDRATION 100CC/HR,KENT CATHETER IN PLACE NO ACUTE DISTRESS NOTED ALL NEEDS MET ENDORSE NEXT COMING SHIFT FOR CONTINUATION OF CARE
--- NOTE | 2021-05-09 07:03 | NUR ---
RN OPENING NOTE RECEIVE REPORT FROM SHANKER OUT NURSE. PATIENT IS POST EXTUBATION. ON 6L NC WITH O2 SAT 100%. A/O X1. RIGHT SIDED WEAKNESS. BEST TO BE ON RIGHT SIDE. PATIENT OXYGEN GOES DOWN WHEN TURN ON LEFT SIDE. CURRENTLY NPO. WILL FOLLOW UP SWALLOW EVALUATION. TOWEL SEWER SHOWS TACHYCARDIA. WILL FOLLOW UP AM LABS AND DOCTORS ORDER. PROPER ISOLATION PRECAUTION IN PLACE. ALL SAFETY MEASURE IN PLACE. BED ON LOWEST POSITION WITH HOB ELEVATED. CALL LIGHT WITHIN REACH. WILL CONTINUE TO MONITOR.
[2021-05-09 07:05] LABS: CREATININE 0.6 mg/dL (0.6-1.3); MAGNESIUM 1.6 mg/dL (1.8-2.4); PHOSPHORUS 2.2 mg/dL (2.5-4.9)
[2021-05-09 07:12] LABS: POTASSIUM 2.5 mmol/L (3.5-5.1)
[2021-05-09] MEDS: PANTOPRAZOLE 40 MG VIAL IV SCH ×2 (08:19→16:28)
[2021-05-09] MEDS: MEROPENEM 1 G in IV NS 0.9% 100 ML IV SCH ×2 (08:19→21:14)
[2021-05-09] MEDS: VANCOMYCIN 500 MG in IV D5W 100 ML IV SCH ×2 (08:51→21:14)
[2021-05-09] MEDS ORDERED: POTASSIUM PHOSPHATE MM 15 MMOL in IV NS 0.9% 250 ML IV ONE (09:00)
[2021-05-09] MEDS: POTASSIUM CL. PREMIX PERIPHER. 50 ML IV SCH ×12 (09:05→18:45)
[2021-05-09] MEDS: Magnesium 1GM/D5W 100ML PREMIX 100 ML IV SCH ×2 (09:14→10:23)
[2021-05-09 09:39] LABS: BASOPHILS % (AUTO) 0.4 % (0.0-2.0); EOSINOPHILS % (AUTO) 2.8 % (0.0-6.0); HEMATOCRIT 27 % (33-45); LYMPHOCYTES # (AUTO) 0.6 K/uL (0.8-4.8); LYMPHOCYTES % (AUTO) 7.9 % (20.0-44.0); MEAN CORPUSCULAR HGB CONC 33 g/dl (31.0-36.0); MEAN CORPUSCULAR VOLUME 84 fL (82-100); MONOCYTES # (AUTO) 0.3 K/uL (0.1-1.30); MONOCYTES % (AUTO) 4.2 % (2.0-12.0); NEUTROPHILS # (AUTO) 6.9 K/uL (1.8-8.9); NEUTROPHILS % (AUTO) 84.7 % (43.0-81.0); PLATELET COUNT (AUTO) 286 K/uL (150-450); RED BLOOD CELL COUNT(AUTO) 3.27 MIL/uL (4.0-5.2); WHITE BLOOD COUNT (AUTO) 8.1 K/uL (4.3-11.0)
[2021-05-09] MEDS ORDERED: hydrALAZINE HCL IV 20 MG VIAL IV PRN (11:30)
[2021-05-09] MEDS: LORAZEPAM INJ 2 MG/ML VIAL IV PRN (12:18)
[2021-05-09] MEDS: HYDROMORPHONE INJ 2 MG/ML DISP.SYRIN IV PRN ×2 (12:29→21:37)
--- NOTE | 2021-05-09 17:48 | NUR ---
RN NOTE UNABLE TO FINISH ORIGINAL POTASSIUM ORDERS. THERE WAS 2 ORDERS. ONE ORDER WAS FOR 6 BAGS OF POTASSIUM CHLORIDE 10MEQ/BAG. OTHER ORDER WAS FOR 4 BAGS OF POTASSIUM CHLORIDE 10MEQ/BAG. THE TWO ORDER WAS STAGER BY 30 MIN. THE RATE PER DOSE IS 50ML/HR WITH 50ML IN THE BAG. WHEN SCANNING EACH BAG OF POTASSIUM THAT WAS GIVEN, IT WOUND SCAN UNDER ONE ORDER THAN SKIP TO ANOTHER ORDER FOR ANOTHER BAG. DUE TO THIS, KEEPING UP WITH THE SCHEDULE TIME WAS NOT POSSIBLE. A RESULT, THE ORDERS WAS D/C DUE TO TIMING. THE ORDER THAT WAS D/C WAS FOR 1200, 1230, AND 1330. PHARMACY WAS ABLE TO PUT ORDERS FOR THE REMAINING 3 BAGS THAT STILL NEED TO BE GIVEN. NEW TIMINGS: 1800, 1900, 2100.
--- NOTE | 2021-05-09 18:21 | NUR ---
RN CLOSING NOTE PATIENT REMAIN IN STABLE CONDITION THROUGH OUT SHIFT. REMAIN ON NC AT 6L/MIN WITH O2 SAT OF 98-100%. PATIENT OXYGEN SAT WILL DECREASE WHEN LAYING ON THE LEFT SIDE. AMHARIC SPEAKING. A/O X2. TELEMETRY REMAIN TACHYCARDIA. URINE CONTINUE TO DRAIN VIA KENT. NPO. NG ON INTERMITTENT SUCTION. AM LAB SHOWS POTASSIUM LEVEL OF 2.5. POTASSIUM IS BEING REPLACE. 2GM OF MAGNESIUM SULFATE HAVE BEEN GIVEN. PATIENT HAVE BEEN CLEAN, TURN AND REPOSITION PER PROTOCOL. PROPER ISOLATION IN PLACE. ALL SAFETY MEASURE IN PLACE. BED ON LOWEST POSITION WITH HOB ELEVATED AND 3 SIDE RAIL UP. CALL LIGHT WITHIN REACH. WILL CONTINUE TO MONITOR AND ENDORSE TO ON COMING NURSE.
--- NOTE | 2021-05-09 19:35 | NUR ---
RN OPENING NOTE RECEIVED PATIENT RESTING IN BED ON OXYGEN VIA NC AT 6L/MIN ,SATURATING AT 98%. GREEK SPEAKING. A/O X2. TELEMETRY REMAIN TACHYCARDIA 110-125HR. URINE DRAINING VIA KENT, YELLOW IN COLOR. NPO. NG ON INTERMITTENT SUCTION. AM LAB SHOWS POTASSIUM LEVEL OF 2.5. POTASSIUM IS BEING REPLACED. ALL ISOLATION PRECAUTIONS TAKEN, ALL ENVIRONMENTAL SAFETY MEASURES TAKEN.BED IN LOWEST POSITION. WILL CONTINUE TO MONITOR PATIENT THROUGHOUT THE SHIFT.
[2021-05-09] MEDS ORDERED: POTASSIUM CL. PREMIX PERIPHER. 50 ML IV SCH (21:00)
[2021-05-09] MEDS: FLUCONAZOLE IN NS 100 MG in PREMIX 1 EA IV SCH ×2 (21:13)
[2021-05-09] MEDS: INSULIN GLARGINE, 100 UNIT/ML CARTRIDGE SQ SCH (22:00)
--- NOTE | 2021-05-09 22:00 | NUR ---
RN NOTE BS 133 - JARRELL GRIFFIN , CHARGE NURSE MATTIE HEDRICK
[2021-05-09] MEDS ORDERED: PHENYLEPHRINE 50 MG in IV NS 0.9% 245 ML IV PRN (22:30)
--- NOTE | 2021-05-09 22:33 | NUR ---
RN NOTE CHARGE NURSE CONTACTED DR. SEVILLA FOR PATIENTS BP AT 75/50 HR 124 - ORDERED NORSYNEPHRINE. WILL FOLLOW THROUGH WITH ORDER..
[2021-05-09] MEDS ORDERED: PHENYLEPHRINE 10 MG/ML VIAL ONE (22:35)
--- NOTE | 2021-05-09 22:57 | NUR ---
RN NOTE STARTED PATIENT ON PHENYLEPHRINE PER DR. STEWART FOR LOW BP.
[2021-05-10] VITALS (44 sets, daily range): BP systolic 93–167; BP diastolic 23–107
[2021-05-10] MEDS: BLOOD SUGAR DIAGNOSTIC 1 EACH STRIP IN SCH ×5 (00:08→23:00)
[2021-05-10] MEDS ORDERED: POTASSIUM CL. PREMIX PERIPHER. 50 ML ONE (00:11)
[2021-05-10] MEDS: INSULIN REGULAR, HUMAN 100 UNIT/ML 3 ML VIAL SQ PRN ×3 (00:13→23:02)
--- NOTE | 2021-05-10 04:17 | NUR ---
RN NOTE LOWERED NEOSYNEPHRINE TO 0.1 , PATIENTS BP WAS 147/73
[2021-05-10 05:29] LABS: BASOPHILS % (AUTO) 0.3 % (0.0-2.0); EOSINOPHILS % (AUTO) 3.1 % (0.0-6.0); HEMATOCRIT 28 % (33-45); LYMPHOCYTES # (AUTO) 0.6 K/uL (0.8-4.8); LYMPHOCYTES % (AUTO) 8.5 % (20.0-44.0); MEAN CORPUSCULAR HGB CONC 32 g/dl (31.0-36.0); MEAN CORPUSCULAR VOLUME 86 fL (82-100); MONOCYTES # (AUTO) 0.4 K/uL (0.1-1.30); MONOCYTES % (AUTO) 5.8 % (2.0-12.0); NEUTROPHILS % (AUTO) 82.3 % (43.0-81.0); PLATELET COUNT (AUTO) 323 K/uL (150-450); RED BLOOD CELL COUNT(AUTO) 3.29 MIL/uL (4.0-5.2); WHITE BLOOD COUNT (AUTO) 7.3 K/uL (4.3-11.0)
--- NOTE | 2021-05-10 05:51 | NUR ---
RN NOTE TURNED PATIENTS PHENYLEPHRINE OFF - PATIENTS BP WAS 130/74
[2021-05-10] MEDS: IV LR 1000 ML 1,000 ML IV PRN ×2 (06:06→18:10)
[2021-05-10 06:20] LABS: CALCIUM, SERUM 7.6 mg/dL (8.5-10.1); CREATININE 0.9 mg/dL (0.6-1.3); PHOSPHORUS 2.8 mg/dL (2.5-4.9); POTASSIUM 4.4 mmol/L (3.5-5.1)
--- NOTE | 2021-05-10 07:19 | NUR ---
RN OPENING NOTE RECEIVE REPORT FROM HOUSEKEEPER CHILD CARE NURSE. PATIENT IN STABLE CONDITION. AWAKE AND ALERT. RECEIVING OXYGEN VIA NC AT 6L/MIN WITH O2 SAT AT 100%. STRIPER SHOW SINUS TACHY. CONTINUE FROM YESTERDAY. NASAL GASTRIC TUBE CONTINUE ON WALL INTERMITTENS SUCTION. WILL FOLLOW UP AM LABS AND DOCTOR ORDERS. PROPER ISOLATION PRECAUTION IN PLACE. ALL SAFETY MEASURE IN PLACE. BED ON LOWEST POSITION WITH HOB ELEVATED AND 3 SIDE RAIL UP. CALL LIGHT WITHIN REACH. WILL CONTINUE TO MONITOR.
--- NOTE | 2021-05-10 07:54 | NUR ---
RN CLOSING NOTE PATIENT REMAINS STABLE, IS NO LONGER ON THE NORSYNEPHRINE, BP NOW AT 129/68 WITH HR 116. PATIENT HAS BEEN TACHY THROUGHOUT THE NIGHT. ALL MEDICATIONS GIVEN ORDERED. PATIENT REMAINS ON O2 VIA NC 6L. WILL ENDORSE PLAN OF CARE TO ONCOMING NURSE.
[2021-05-10] MEDS: MEROPENEM 1 G in IV NS 0.9% 100 ML IV SCH ×2 (08:01→20:31)
[2021-05-10] MEDS: PANTOPRAZOLE 40 MG VIAL IV SCH ×2 (08:01→17:02)
[2021-05-10] MEDS: VANCOMYCIN 500 MG in IV D5W 100 ML IV SCH (08:47)
[2021-05-10] MEDS: IV NS 0.9% 250 ML IV PRN (08:47)
[2021-05-10 09:14] LABS: ABG BASE EXCESS -1.7 mmol/L; ABG OXYGEN SATURATION 98.4 % (92.0-98.5); ABG PCO2 30.2 mmHg (35.0-45.0); ABG PH 7.472 (7.350-7.450); ABG PO2 123.4 mmHg (75.0-100.0); AaDO2 127.1 mmHg; COHb 0.7 % (0.5-1.5); MetHb 0.1 % (0.0-1.5); O2Hb 97.6 % (94.0-97.0); SITE, ABG Left Radial; VENT MODE, BG AC 16 400 40%
[2021-05-10 09:15] LABS: ABG BASE EXCESS -2.2 mmol/L; ABG OXYGEN SATURATION 93.8 % (92.0-98.5); ABG PCO2 31.1 mmHg (35.0-45.0); ABG PH 7.452 (7.350-7.450); ABG PO2 70.8 mmHg (75.0-100.0); AaDO2 106.6 mmHg; COHb 0.3 % (0.5-1.5); O2Hb 93.5 % (94.0-97.0); SITE, ABG Right Radial; VENT MODE, BG cpap ps 12 30%
[2021-05-10] MEDS ORDERED: TPN/PPN PER PHARMACY IV PRN (10:30)
[2021-05-10] MEDS: ACETAMINOPHEN 650 MG/SUPP.RECT RC PRN (10:40)
--- NOTE | 2021-05-10 13:54 | NUR ---
RN NOTE SPOKE WITH DR. FRIEND OVER THE PHONE. DR. FRIEND ORDER FOR NG TUBE TO BE REMOVE.
[2021-05-10] MEDS ORDERED: TPN BAG #1 IV SCH ×4 (14:00)
[2021-05-10 14:20] LABS: BASOPHILS % (AUTO) 0.5 % (0.0-2.0); EOSINOPHILS % (AUTO) 3.7 % (0.0-6.0); HEMATOCRIT 26 % (33-45); HEMOGLOBIN 8.5 g/dL (11.5-14.8); LYMPHOCYTES # (AUTO) 0.5 K/uL (0.8-4.8); LYMPHOCYTES % (AUTO) 6.7 % (20.0-44.0); MEAN CORPUSCULAR HGB CONC 32 g/dl (31.0-36.0); MEAN CORPUSCULAR VOLUME 84 fL (82-100); MONOCYTES # (AUTO) 0.4 K/uL (0.1-1.30); MONOCYTES % (AUTO) 5.4 % (2.0-12.0); NEUTROPHILS # (AUTO) 5.7 K/uL (1.8-8.9); NEUTROPHILS % (AUTO) 83.7 % (43.0-81.0); PLATELET COUNT (AUTO) 309 K/uL (150-450); RED BLOOD CELL COUNT(AUTO) 3.14 MIL/uL (4.0-5.2); WHITE BLOOD COUNT (AUTO) 6.8 K/uL (4.3-11.0)
[2021-05-10 14:44] LABS: ALANINE AMINOTRANSFERASE < 6 U/L (12-78); ALKALINE PHOSPHATASE 77 U/L (46-116); ASPARTATE AMINOTRANSFERASE 12 U/L (15-37); BILIRUBIN,TOTAL 0.3 mg/dL (0.2-1.0); CARBON DIOXIDE 23 mmol/L (21-32); CHLORIDE 109 mmol/L (98-107); GLUCOSE 117 mg/dL (74-106); POTASSIUM 3.6 mmol/L (3.5-5.1); SODIUM SERUM 143 mmol/L (136-145); TOTAL PROTEIN, SERUM 4.7 g/dL (6.4-8.2); UREA NITROGEN, BLOOD 6 mg/dL (7-18)
[2021-05-10 14:50] LABS: ALBUMIN 1.1 g/dL (3.4-5.0)
--- NOTE | 2021-05-10 18:31 | NUR ---
RN CLOSING NOTE PATIENT HAVE BEEN IN STABLE CONDITION WITH NO SIGN OF DISTRESS THROUGHOUT SHIFT. ON OXYGEN VIA NC AT 5L/MIN. PATIENT IS ALERT AND ABLE TO COMMUNICATE. DIVEHI SPEAKING. NG TUBE WAS REMOVED PER DR. FRIEND. TPN WAS STARTED PER DR. FERNANDEZ. TPN RATE IS 40ML/HR. CONTINUE RECEIVING LR WITH A DECREASED RATE OF 60ML/HR. ALL MEDICATION WAS GIVEN DURING SHIFT. PATIENT WAS CLEAN, TURN, AND REPOSITION PER PROTOCOL. PROPER ISOLATION IN PLACE. ALL SAFETY MEASURE IN PLACE. BED ON LOWEST POSITION WITH HOB ELEVATED AND 3 SIDE RAIL UP. CALL LIGHT WITHIN REACH. WILL CONTINUE TO MONITOR AND ENDORSE TO ON COMING NURSE.
--- NOTE | 2021-05-10 20:30 | NUR ---
RN NOTE PATIENT ALERT AND RESPONSIVE, ABLE TO VERBALIZED NEEDS. [place] SPEAKING. ON O2 5L VIA NASAL CANNULA. O2 SAT 100%. PATIENT COMPLAINED OF SEVERED HEADACHE AND ABDOMINAL PAIN. WILL ADMINISTER PRN PAIN MEDS. WITH BILATERAL SOFT WRIST RESTRAINTS, NO S/S OF SKIN BREAKDOWN. NOTED WITH KENT CATH DRAINING URINE VIA GRAVITY. IV ACCESS ON IDRIS PICC LINE INFUSING LR @ 60ML/HR AND TPN @ 40ML/HR. BRANDON DRAIN NOTED, PATENT AND INTACT. BED LOCKED AND IN LOWEST POSITION. CALL LIGHT WITHIN REACH. WILL CONTINUE TO MONITOR.
[2021-05-10] MEDS: HYDROMORPHONE INJ 2 MG/ML DISP.SYRIN IV PRN (20:31)
[2021-05-10] MEDS ORDERED: FUROSEMIDE 20 MG/2 ML VIAL IV ONE (22:00)
--- NOTE | 2021-05-10 22:16 | NUR ---
RN NOTE SEEN BY DR. PASHA BARTLETT, PATIENT NOTED WITH CRACKLES. O2 SAT 99% ON 5L VIA NASAL CANNULA. BLOOD PRESSURE 93/49. DR. PASHA BARTLETT WITH NEW ORDERS FOR IV LASIX 20 MG ONCE AND D/C LR @ 60ML FLUIDS. CHARGE NURSE ED AWARE.
[2021-05-10] MEDS: INSULIN GLARGINE, 100 UNIT/ML CARTRIDGE SQ SCH (23:01)
[2021-05-11] VITALS (16 sets, daily range): BP systolic 90–166; BP diastolic 49–106
[2021-05-11] MEDS: BLOOD SUGAR DIAGNOSTIC 1 EACH STRIP IN SCH ×3 (05:11→17:27)
[2021-05-11] MEDS: INSULIN REGULAR, HUMAN 100 UNIT/ML 3 ML VIAL SQ PRN ×3 (05:11→17:28)
[2021-05-11 05:17] LABS: CREATININE 1.1 mg/dL (0.6-1.3); MAGNESIUM 1.7 mg/dL (1.8-2.4); PHOSPHORUS 2.4 mg/dL (2.5-4.9)
[2021-05-11 05:21] LABS: BASOPHILS % (AUTO) 0.4 % (0.0-2.0); EOSINOPHILS % (AUTO) 4.3 % (0.0-6.0); HEMATOCRIT 25 % (33-45); HEMOGLOBIN 8.3 g/dL (11.5-14.8); LYMPHOCYTES # (AUTO) 0.7 K/uL (0.8-4.8); LYMPHOCYTES % (AUTO) 11.3 % (20.0-44.0); MEAN CORPUSCULAR HGB CONC 33 g/dl (31.0-36.0); MEAN CORPUSCULAR VOLUME 83 fL (82-100); MONOCYTES # (AUTO) 0.4 K/uL (0.1-1.30); NEUTROPHILS # (AUTO) 4.7 K/uL (1.8-8.9); PLATELET COUNT (AUTO) 345 K/uL (150-450); WHITE BLOOD COUNT (AUTO) 6.1 K/uL (4.3-11.0)
[2021-05-11 05:32] LABS: PREALBUMIN 7.6 MG/DL (18.0-35.7)
[2021-05-11 05:58] LABS: POTASSIUM 2.8 mmol/L (3.5-5.1)
[2021-05-11 05:59] LABS: ALBUMIN 1.2 g/dL (3.4-5.0)
--- NOTE | 2021-05-11 06:44 | NUR ---
RN NOTE PATIENT AWAKE AND ALERT. ON O2 4L VIA NASAL CANNULA. O2 SAT 98%. WITH BILATERAL SOFT WRIST RESTRAINTS, NO S/S OF SKIN BREAKDOWN. KENT CATH DRAINED 1500CC. IV ACCESS ON IDRIS PICC LINE INFUSING TPN @ 40ML/HR. BRANDON DRAIN OUTPUT OF 60CC. TOLERATED BED BATH WELL. TURNED AND REPOSITIONED. BED LOCKED AND IN LOWEST POSITION. CALL LIGHT WITHIN REACH. WILL ENDORSE TO AM SHIFT.
--- NOTE | 2021-05-11 07:30 | NUR ---
RN NOTE PATIENT AWAKE AND ALERT. ON O2 4L VIA NASAL CANNULA. O2 SAT 98%. WITH BILATERAL SOFT WRIST RESTRAINTS, NO S/S OF SKIN BREAKDOWN. KENT CATH DRAINING . IV ACCESS ON IDRIS PICC LINE INFUSING TPN @ 40ML/HR. BRANDON DRAIN AND PATENT. TURNED AND REPOSITIONED. BED LOCKED AND IN LOWEST POSITION. CALL LIGHT WITHIN REACH. WILL TEENA.
[2021-05-11] MEDS: PANTOPRAZOLE 40 MG VIAL IV SCH ×2 (08:00→16:28)
[2021-05-11] MEDS: MEROPENEM 1 G in IV NS 0.9% 100 ML IV SCH (08:01)
[2021-05-11] MEDS: HYDROMORPHONE INJ 2 MG/ML DISP.SYRIN IV PRN ×3 (08:15→23:20)
[2021-05-11] MEDS: POTASSIUM CL. PREMIX PERIPHER. 50 ML IV SCH ×6 (09:00→14:17)
--- NOTE | 2021-05-11 09:44 | NUR ---
RN NOTE PT COMPLAIN OF ABDOMEN PAIN, DILAUDID GIVEN AT 0815, WILL CONTINUE TO MONITOR AND ASSESSMENT.
--- NOTE | 2021-05-11 11:09 | NUR ---
RN NOTE DC TPN PER SALMA COPPOLA, PLACE THE NGT, WAITING FOR XRAY TO VERIFY PLACEMENT, TRANSFER PT TO 325 BED 2, GIVEN REPORT TO TROY HE
--- NOTE | 2021-05-11 11:30 | NUR ---
RN NOTE RECEIVED PATIENT FROM ICU IN STABLE CONDITION
[2021-05-11] MEDS: Magnesium 1GM/D5W 100ML PREMIX 100 ML IV SCH ×2 (15:10→16:29)
[2021-05-11] MEDS ORDERED: Sodium Phosphate 15 MMOL in IV NS 0.9% 250 ML IV SCH (18:00)
--- NOTE | 2021-05-11 18:16 | NUR ---
RN CLOSING NOTE PATIENT RESTING IN BED. PATIENT IS BREATHING EVENLY AND NONLABORED ON OXYGEN VIA NC AT 4L/MIN. PATIENT A/O X1-2. EGYPTIAN SPEAKING. NG TUBE WAS PLACED DURING SHIFT AWAITING NUTRITIONAL CONSULT. ALL MEDICATION WAS GIVEN DURING SHIFT. PATIENT WAS CLEAN, TURN, AND REPOSITION PER PROTOCOL. PATIENT HAS IV ACCESS TO IDRIS PICC LINE RUNNING SODIUM PHOS @ 85ML/HR. ALL SAFETY MEASURE IN PLACE. BED ON LOWEST POSITION WITH HOB ELEVATED AND 3 SIDE RAIL UP. CALL LIGHT WITHIN REACH. WILL CONTINUE TO MONITOR AND ENDORSE TO ON COMING NURSE.
--- NOTE | 2021-05-11 20:13 | NUR ---
RN OPENING NOTES Patient currently resting in bed though easy to wake. A&Ox1. No s/s of distress at this time. L hand soft wrist restraint at this time for patient pulling at lines, O2 tubing, and NG tube, skin and circulation intact. Patient not yet seen by dietary for NGT feeding initiation. Currently running sodium phosphate IV, will f/u with to see if patient will be started on fluids for overnight.
[2021-05-11] MEDS: INSULIN GLARGINE, 100 UNIT/ML CARTRIDGE SQ SCH (21:24)
--- NOTE | 2021-05-11 21:24 | NUR ---
Lantus held. BS 87 TPN was discontinued this AM and patient not on GT feeding yet, not seen by FNS. Overnight on D5 1/2 NS will continue blood sugar checks and will use sliding scale if needed.
[2021-05-11] MEDS: IV D5/0.45 NACL 1,000 ML IV PRN (22:07)
--- NOTE | 2021-05-11 23:59 | NUR ---
Urine collected. Place in biohazard fridge.
[2021-05-12] VITALS: BP 133/71
[2021-05-12 01:52] LABS: CHLORIDE,URINE RANDOM 147 mmol/L (55-125); POTASSIUM RNDM,URINE 33 mmol/L (25-125); URINE SODIUM, RANDOM 105 mmol/l (40-220)
[2021-05-12 04:00] VITALS: BP 144/79
[2021-05-12] MEDS ORDERED: HYDROMORPHONE INJ 2 MG/ML DISP.SYRIN ONE (04:16)
[2021-05-12] MEDS: HYDROMORPHONE INJ 2 MG/ML DISP.SYRIN IV PRN ×2 (04:23→10:30)
[2021-05-12 06:40] LABS: BASOPHILS % (AUTO) 0.7 % (0.0-2.0); EOSINOPHILS % (AUTO) 5.3 % (0.0-6.0); HEMATOCRIT 26 % (33-45); HEMOGLOBIN 8.3 g/dL (11.5-14.8); LYMPHOCYTES # (AUTO) 0.6 K/uL (0.8-4.8); LYMPHOCYTES % (AUTO) 13.2 % (20.0-44.0); MEAN CORPUSCULAR HGB CONC 32 g/dl (31.0-36.0); MEAN CORPUSCULAR VOLUME 85 fL (82-100); MONOCYTES # (AUTO) 0.4 K/uL (0.1-1.30); MONOCYTES % (AUTO) 7.8 % (2.0-12.0); NEUTROPHILS # (AUTO) 3.5 K/uL (1.8-8.9); PLATELET COUNT (AUTO) 374 K/uL (150-450); RED BLOOD CELL COUNT(AUTO) 3.02 MIL/uL (4.0-5.2); WHITE BLOOD COUNT (AUTO) 4.7 K/uL (4.3-11.0)
[2021-05-12] MEDS: BLOOD SUGAR DIAGNOSTIC 1 EACH STRIP IN SCH ×4 (06:46→17:50)
[2021-05-12] MEDS: IV D5/0.45 NACL 1,000 ML IV PRN ×2 (06:54→22:39)
[2021-05-12 07:16] LABS: CALCIUM, SERUM 8.7 mg/dL (8.5-10.1); CREATININE 1.2 mg/dL (0.6-1.3); MAGNESIUM 2.4 mg/dL (1.8-2.4); PHOSPHORUS 2.8 mg/dL (2.5-4.9); POTASSIUM 4.3 mmol/L (3.5-5.1)
--- NOTE | 2021-05-12 07:30 | NUR ---
RN OPENING NOTES RECEIVED PATIENT RESTING IN BED. EQUAL CHEST EXPANSION DURING RESPIRATIONS ON 4L/MIN OF O2 VIA NC. PATIENT A/O X1-2. HUNGARIAN SPEAKING. NG TUBE IN PLACE AND PATENT. PATIENT HAS IV ACCESS TO IDRIS PICC LINE RUNNING D5 1/2 @ 75 ML/HR. BILATERAL SOFT RESTRAINTS IN PLACE FOR SAFETY. CAPILLARY REFILL LESS THAN 3 SECONDS ON UE AND STRONG RADIAL PULSES. TELE MONITOR SHOWS SINUS TACH 101 AT THE MOMENT. ALL SAFETY MEASURE IN PLACE. BED IN LOWEST POSITION WITH HOB ELEVATED AND 3 SIDE RAIL UP. CALL LIGHT WITHIN REACH. WILL CONTINUE TO MONITOR PATIENT
[2021-05-12 08:00] VITALS: BP 137/74
[2021-05-12 08:35] LABS: ABG BASE EXCESS 0.6 mmol/L; ABG OXYGEN SATURATION 95.6 % (92.0-98.5); ABG PCO2 45.7 mmHg (35.0-45.0); ABG PH 7.373 (7.350-7.450); ABG PO2 85.4 mmHg (75.0-100.0); AaDO2 118.3 mmHg; COHb 0.3 % (0.5-1.5); MetHb 0.3 % (0.0-1.5); SITE, ABG Left Radial; VENT MODE, BG 4LPM NASAL CANNULA
--- NOTE | 2021-05-12 09:10 | NUR ---
UTILITY HELICOPTER REPAIRER NOTES D/C TELE MONITOR. OKAY TO TRANSFER TO MED-SURG PER DR PRYOR.
[2021-05-12] MEDS: PANTOPRAZOLE 40 MG VIAL IV SCH ×2 (10:29→17:24)
[2021-05-12] MEDS: GLUCERNA NG SCH (12:13)
[2021-05-12 16:00] VITALS: BP 152/86
[2021-05-12] MEDS: INSULIN REGULAR, HUMAN 100 UNIT/ML 3 ML VIAL SQ PRN (18:07)
--- NOTE | 2021-05-12 18:50 | NUR ---
RN CLOSING NOTES PATIENT RESTING IN BED. EQUAL CHEST EXPANSION DURING RESPIRATIONS ON 4L/MIN OF O2 VIA NC. AUDIBLE CRACKLES AND WHEEZING NOTED. PATIENT A/O X1-2. NORTHERN IRISH SPEAKING. NG TUBE IN PLACE AND PATENT WITH GLUCERNA 1.2 RUNNING @ 25ML/HR, TOLERATING WELL. GOAL FOR FEEDING IS 55ML/HR PER MARBLE INSTALLATION HELPER. PATIENT HAS IV ACCESS TO IDRIS PICC LINE RUNNING D5 1/2 @ 75 ML/HR. DR. STEVENS WANTS TO CONTINUE RUNNING FLUIDS ALONG WITH FEEDING. BILATERAL SOFT RESTRAINTS IN PLACE FOR SAFETY. BRANDON DRAIN RUQ IN PLACE DRAINING 50ML OF CLEAR FLUID. KENT CATHETER INTACT AND PATENT DRAINING SCANT YELLOW URINE. CAPILLARY REFILL LESS THAN 3 SECONDS ON UE AND STRONG RADIAL PULSES. ALL SAFETY MEASURES IN PLACE. BED IN LOWEST POSITION WITH HOB ELEVATED AND 3 SIDE RAILS UP. CALL LIGHT WITHIN REACH. WILL ENDORSE TO THE QUARTZ CUTTER NURSE FOR TEENA
[2021-05-12 20:00] VITALS: BP 142/71
[2021-05-12] MEDS: INSULIN GLARGINE, 100 UNIT/ML CARTRIDGE SQ SCH (22:28)
--- NOTE | 2021-05-12 22:51 | NUR ---
MS RN NOTES: [id number] BS94MG/DL..
[2021-05-13] VITALS: BP 138/66
[2021-05-13] MEDS: INSULIN REGULAR, HUMAN 100 UNIT/ML 3 ML VIAL SQ PRN ×2 (00:45→23:47)
[2021-05-13] MEDS: BLOOD SUGAR DIAGNOSTIC 1 EACH STRIP IN SCH ×5 (00:46→23:29)
[2021-05-13 04:00] VITALS: BP 161/76
--- NOTE | 2021-05-13 05:24 | NUR ---
MS RN NOTES: BS 79MG/DL at 0509. No Insulin coverage needed
--- NOTE | 2021-05-13 06:47 | NUR ---
MS RN NOTES: PATIENT CLEANED, BED LINENS AND GOWN CHANGED. Z-GUARD APPLIED TO PERINEAL AND SACRAL AREAS. PATIENT REPOSITIONED LAYING COMFORTABLY IN BED. D5 1/2 NS SALINE RUNNING AT 75ML/HR AND GLUCERNA VIA NGT FEEDING RUNNING 30ML/HR. 02 4L VIA NC. PATIENT HAS NO S/S OF DISTRESS. RESPIRATION EVEN AND UNLABORED WITH EQUAL RISE AND FALL OF THE CHEST. WILL CONTINUE TO MONITOR AND ENDORSE TO AM SHIFT.
--- NOTE | 2021-05-13 07:25 | NUR ---
RN OPENING NOTES RECEIVED PATIENT RESTING IN BED. EQUAL CHEST EXPANSION DURING RESPIRATIONS ON 4L/MIN OF O2 VIA NC. PATIENT A/O X1-2. BRUNEIAN SPEAKING. NG TUBE IN PLACE AND PATENT WITH GLUCERNA 1.2 RUNNING @ 30 ML/HR. PATIENT HAS IV ACCESS TO IDRIS PICC LINE RUNNING D5 1/2 @ 75 ML/HR. BILATERAL SOFT RESTRAINTS IN PLACE FOR SAFETY. CAPILLARY REFILL LESS THAN 3 SECONDS ON UE AND STRONG RADIAL PULSES. ALL SAFETY MEASURE IN PLACE. BED IN LOWEST POSITION WITH HOB ELEVATED AND 3 SIDE RAIL UP. CALL LIGHT WITHIN REACH. WILL CONTINUE TO MONITOR PATIENT
--- NOTE | 2021-05-13 07:40 | NUR ---
RT DAILY ABGS CANCELLED PER PROTOCOL.
[2021-05-13 08:00] VITALS: BP 152/72
[2021-05-13] MEDS: PANTOPRAZOLE 40 MG VIAL IV SCH ×2 (09:56→18:15)
[2021-05-13] MEDS: LISINOPRIL (10MG) 10 MG TABLET PO SCH (09:56)
[2021-05-13] MEDS: SCOPOLAMINE PATCH 1 MG/72HR TD SCH (11:11)
[2021-05-13] MEDS: ACETYLCYSTEINE 10% SOLN 400 MG/4 ML VIAL NEB SCH ×3 (12:00→23:14)
[2021-05-13] MEDS: MEROPENEM 1 G in IV NS 0.9% 100 ML IV SCH ×2 (12:37→21:29)
[2021-05-13 16:00] VITALS: BP 118/62
--- NOTE | 2021-05-13 18:45 | NUR ---
RN CLOSING NOTES RECEIVED PATIENT RESTING IN BED. EQUAL CHEST EXPANSION DURING RESPIRATIONS ON 4L/MIN OF O2 VIA NC. PATIENT A/O X1-2. AMERICAN SPEAKING. NG TUBE IN PLACE AND PATENT WITH GLUCERNA 1.2 RUNNING @ 35 ML/HR. PATIENT HAS IV ACCESS TO IDRIS PICC LINE RUNNING D5 1/2 @ 75 ML/HR. BILATERAL SOFT RESTRAINTS IN PLACE FOR SAFETY. CAPILLARY REFILL LESS THAN 3 SECONDS ON UE AND STRONG RADIAL PULSES. ALL SAFETY MEASURE IN PLACE. BED IN LOWEST POSITION WITH HOB ELEVATED AND 3 SIDE RAIL UP. CALL LIGHT WITHIN REACH. WILL ENDORSE TO MANAGEMENT TECHNICIAN NURSE FOR TEENA
[2021-05-13] MEDS: IV D5/0.45 NACL 1,000 ML IV PRN (19:07)
--- NOTE | 2021-05-13 19:35 | NUR ---
MS RN OPENING NOTES RECEIVED PATIENT LAYING AWAKE IN BED. A/O X 1. PATIENT WITH REGULAR AND UNLABORED BREATHING ON 4LPM VIA NASAL CANULA, TOLERATED WELL. NO SIGNS AND SYMPTOMS OF DISTRESS NOTED AT THIS TIME. NO COMPLAINS OF PAIN OR DISCOMFORT AT THIS TIME. PATIENT WITH GLUCERNA 1.2 RUNNING @ 35 ML/HR, TOLERATED WELL. IV ACCESS IDRIS PICC LINE INFUSING D5 1/2 NS @ 75 ML/HR. IV ACCESS PATENT AND INTACT. SAFETY PRECAUTIONS ENFORCED WITH BED LOCKED AND AT LOWEST POSITION. SIDERAILS UP X2. CALL LIGHT WITHIN REACH AT ALL TIMES. WILL CONTINUE TO MONITOR PATIENT.
[2021-05-13 20:00] VITALS: BP 158/77
[2021-05-13] MEDS: INSULIN GLARGINE, 100 UNIT/ML CARTRIDGE SQ SCH (21:41)
[2021-05-14] MEDS: BLOOD SUGAR DIAGNOSTIC 1 EACH STRIP IN SCH ×3 (05:37→18:46)
[2021-05-14] MEDS: DEXTROSE 50%-WATER 50 ML DISP.SYRIN IV PRN (05:41)
--- NOTE | 2021-05-14 05:42 | NUR ---
MS RN NOTES PATIENT BLOOD SUGAR WAS 50. ADMINISTERED D50. WILL CONTINUE TO MONITOR PATIENT.
--- NOTE | 2021-05-14 06:12 | NUR ---
MS RN NOTES RECHECKED BLOOD SUGAR IT WAS 173. WILL CONTINUE TO MONITOR PATIENT.
--- NOTE | 2021-05-14 06:55 | NUR ---
MS RN CLOSING NOTES PATIENT STILL LAYING AWAKE IN BED. A/O X 1. PATIENT WITH REGULAR AND UNLABORED BREATHING ON 4LPM VIA NASAL CANULA, TOLERATED WELL. NO SIGNS AND SYMPTOMS OF DISTRESS NOTED AT THIS TIME. NO COMPLAINS OF PAIN OR DISCOMFORT AT THIS TIME. PATIENT WITH GLUCERNA 1.2 RUNNING @ 40 ML/HR, TOLERATED WELL. IV ACCESS IDRIS PICC LINE INFUSING D5 1/2 NS @ 75 ML/HR. IV ACCESS PATENT AND INTACT. SAFETY PRECAUTIONS ENFORCED WITH BED LOCKED AND AT LOWEST POSITION. SIDERAILS UP X2. CALL LIGHT WITHIN REACH AT ALL TIMES. WILL ENDORSE CONTINUITY OF CARE TO DAY SHIFT NURSE.
--- NOTE | 2021-05-14 07:30 | NUR ---
MS RN OPENING NOTES RECEIVED PATIENT IN BED., AWAKE, A/O X 1. PATIENT WITH REGULAR AND UNLABORED BREATHING ON 4LPM VIA NASAL CANULA, TOLERATED WELL. NO SIGNS AND SYMPTOMS OF ACUTE DISTRESS NOTED AT THIS TIME. NO S/SX OF PAIN OR DISCOMFORT AT THIS TIME. NASOGASTRIC TUBE IN PLACE ONGOING GLUCERNA 1.2 RUNNING @ 40 ML/HR, TOLERATING WELL, NO RESIDUAL NOTED. IV ACCESS IDRIS PICC LINE INFUSING D5 1/2 NS @ 75 ML/HR. IV ACCESS PATENT AND INTACT, NO S/SX OF INFILTRATION NOTED. SOFT WRIST RESTRAINT NOTED ON LEFT WRIST. SAFETY PRECAUTIONS ENFORCED WITH BED LOCKED AND AT LOWEST POSITION. SIDE RAILS UP X2. CALL LIGHT WITHIN REACH AT ALL TIMES. WILL CONTINUE TO MONITOR PATIENT ACCORDINGLY.
[2021-05-14 08:00] VITALS: BP 126/72
[2021-05-14] MEDS: MEROPENEM 1 G in IV NS 0.9% 100 ML IV SCH ×2 (08:01→21:26)
[2021-05-14] MEDS: GLUCERNA NG SCH (08:05)
[2021-05-14] MEDS: PANTOPRAZOLE 40 MG VIAL IV SCH ×2 (08:15→16:28)
[2021-05-14] MEDS: ACETYLCYSTEINE 10% SOLN 400 MG/4 ML VIAL NEB SCH ×3 (08:45→23:56)
--- NOTE | 2021-05-14 09:00 | NUR ---
RN NOTES BRANDON DRAIN AND STAPLE SUTURES REMOVED BY DR. FRIEND. PATIENT TOLERATED PROCEDURE WELL. WILL CONTINUE TO MONITOR.
[2021-05-14] MEDS: LISINOPRIL (10MG) 10 MG TABLET PO SCH (09:09)
[2021-05-14] MEDS: IV D5/0.45 NACL 1,000 ML IV PRN ×2 (09:50→22:57)
--- NOTE | 2021-05-14 12:08 | NUR ---
RN NOTES SPEECH THERAPIST EVALUATED PATIENT TODAY FOR SWALLOWING. PER ST PATIENT UNABLE TO TOLERATE ORAL FEEDING YET.
--- NOTE | 2021-05-14 15:45 | NUR ---
RN NOTES PATIENT IS FOR CT OF THE CHEST WITHOUT CONTRAST, FOLLOWED UP TO CT SCAN DEPARTMENT, SPOKE TO VASQUEZ, PER VASQUEZ IT MIGHT BE DONE TOMORROW.
--- NOTE | 2021-05-14 18:56 | NUR ---
MS RN OPENING NOTES PATIENT IN BED, AWAKE, A/O X 1. PATIENT WITH REGULAR AND UNLABORED BREATHING ON 4LPM VIA NASAL CANULA, TOLERATED WELL. NO SIGNS AND SYMPTOMS OF ACUTE DISTRESS NOTED AT THIS TIME. NO S/SX OF PAIN OR DISCOMFORT AT THIS TIME. NASOGASTRIC TUBE IN PLACE ONGOING GLUCERNA 1.2 RUNNING @ 45 ML/HR, TOLERATING WELL, NO RESIDUAL NOTED. IV ACCESS IDRIS PICC LINE INFUSING D5 1/2 NS @ 75 ML/HR. IV ACCESS PATENT AND INTACT, NO S/SX OF INFILTRATION NOTED. SOFT WRIST RESTRAINT NOTED ON LEFT WRIST. SAFETY PRECAUTIONS ENFORCED WITH BED LOCKED AND AT LOWEST POSITION. SIDE RAILS UP X2. CALL LIGHT WITHIN REACH AT ALL TIMES. ALL NEEDS ATTENDED AND MET. DUE MEDS GIVEN ORDERED, WILL ENDORSE TO ONCOMING SHIFT FOR TEENA.
--- NOTE | 2021-05-14 19:25 | NUR ---
MS RN OPENING NOTES RECEIVED PATIENT IN BED, AWAKE, A/O X1-2. NO S/SX OF ACUTE RESPIRATORY DISTRESS NOTED. NGT IN PLACE ONGOING GLUCERNA 1.2 RUNNING @ 45 ML/HR, TOLERATING WELL, NO RESIDUALS NOTED. ON 4LPM VIA NASAL CANULA, TOLERATED WELL. NO S/SX OF PAIN OR DISCOMFORT NOTED. IV ACCESS ON IDRIS PICC LINE INFUSING D5 1/2 NS @ 75 ML/HR, PATENT AND INTACT, NO S/SX OF INFILTRATION NOTED. SOFT WRIST RESTRAINT NOTED ON LEFT WRIST. SAFETY PRECAUTIONS IN PLACE. BED LOCKED AND AT LOWEST POSITION. SIDE RAILS UP X2. CALL LIGHT WITHIN REACH AT ALL TIMES. WILL CONTINUE TO MONITOR.
[2021-05-14 20:00] VITALS: BP 135/90
[2021-05-14] MEDS: INSULIN GLARGINE, 100 UNIT/ML CARTRIDGE SQ SCH (21:36)
[2021-05-15] MEDS: BLOOD SUGAR DIAGNOSTIC 1 EACH STRIP IN SCH ×4 (00:59→17:26)
[2021-05-15] MEDS: INSULIN REGULAR, HUMAN 100 UNIT/ML 3 ML VIAL SQ PRN (01:00)
--- NOTE | 2021-05-15 07:11 | NUR ---
MS RN OPENING NOTES RECEIVED PATIENT IN BED, AWAKE, A/O X 1. PATIENT WITH REGULAR AND UNLABORED BREATHING ON 4LPM VIA NASAL CANULA, TOLERATED WELL. NO SIGNS AND SYMPTOMS OF ACUTE DISTRESS NOTED AT THIS TIME. NO S/SX OF PAIN OR DISCOMFORT AT THIS TIME. NASOGASTRIC TUBE IN PLACE ONGOING GLUCERNA 1.2 RUNNING @ 45 ML/HR, TOLERATING WELL, NO RESIDUAL NOTED. IV ACCESS IDRIS PICC LINE INFUSING D5 1/2 NS @ 75 ML/HR. IV ACCESS PATENT AND INTACT, NO S/SX OF INFILTRATION NOTED. SOFT WRIST RESTRAINT NOTED ON LEFT WRIST. WIT FC CONNECTED TO URINE BAG DRAINING CLEAR YELLOW COLORED URINE. SAFETY PRECAUTIONS ENFORCED WITH BED LOCKED AND AT LOWEST POSITION. SIDE RAILS UP X2. CALL LIGHT WITHIN REACH AT ALL TIMES. WILL CONTINUE TO MONITOR ACCORDINGLY.
[2021-05-15 08:00] VITALS: BP 151/79
[2021-05-15] MEDS: PANTOPRAZOLE 40 MG VIAL IV SCH ×2 (08:55→16:36)
[2021-05-15] MEDS: GLUCERNA NG SCH (08:55)
[2021-05-15] MEDS: LISINOPRIL (10MG) 10 MG TABLET PO SCH (08:56)
[2021-05-15] MEDS: MEROPENEM 1 G in IV NS 0.9% 100 ML IV SCH ×2 (08:56→20:03)
[2021-05-15] MEDS: ACETYLCYSTEINE 10% SOLN 400 MG/4 ML VIAL NEB SCH ×2 (09:40→17:18)
[2021-05-15 09:53] LABS: BASOPHILS % (AUTO) 0.7 % (0.0-2.0); EOSINOPHILS % (AUTO) 5.1 % (0.0-6.0); HEMATOCRIT 29 % (33-45); HEMOGLOBIN 9.4 g/dL (11.5-14.8); LYMPHOCYTES # (AUTO) 0.9 K/uL (0.8-4.8); LYMPHOCYTES % (AUTO) 15.3 % (20.0-44.0); MEAN CORPUSCULAR HGB CONC 32 g/dl (31.0-36.0); MEAN CORPUSCULAR VOLUME 84 fL (82-100); MONOCYTES # (AUTO) 0.5 K/uL (0.1-1.30); MONOCYTES % (AUTO) 8.1 % (2.0-12.0); NEUTROPHILS # (AUTO) 4.3 K/uL (1.8-8.9); NEUTROPHILS % (AUTO) 70.8 % (43.0-81.0); PLATELET COUNT (AUTO) 403 K/uL (150-450); RED BLOOD CELL COUNT(AUTO) 3.45 MIL/uL (4.0-5.2)
[2021-05-15 10:08] LABS: BILIRUBIN,TOTAL 0.2 mg/dL (0.2-1.0); CALCIUM, SERUM 7.2 mg/dL (8.5-10.1); CREATININE 1.2 mg/dL (0.6-1.3); TOTAL PROTEIN, SERUM 5.7 g/dL (6.4-8.2)
[2021-05-15] MEDS: GLYCOPYRROLATE 0.2 MG/ML VIAL IV SCH ×3 (10:18→16:39)
--- NOTE | 2021-05-15 10:28 | NUR ---
RN NOTES RECEIVED A PHONE CALL FROM THE LAB, SPOKE TO MAHSA, RELAYED CRITICAL LAB RESULT OF POTASSIUM 2.3 AND ALBUMIN 1.4. RELATYED TO DR. CISSE, ACKNOWLEGED, AWAITING ORDERS.
[2021-05-15 10:30] LABS: POTASSIUM 2.3 mmol/L (3.5-5.1)
[2021-05-15 10:32] LABS: ALBUMIN 1.4 g/dL (3.4-5.0)
[2021-05-15] MEDS: POTASSIUM CHLORIDE 20 MEQ TAB.PRT.SR PO SCH ×2 (11:13→16:36)
[2021-05-15] MEDS ORDERED: PIPERACILLIN /TAZOBACTAM 4.5 G in IV D5W 50 ML IV ONE (12:00)
[2021-05-15] MEDS: IV D5/0.45 NACL 1,000 ML IV PRN (15:10)
[2021-05-15] MEDS ORDERED: PIPERACILLIN /TAZOBACTAM 3.375 G in IV D5W 100 ML IV SCH (18:00)
--- NOTE | 2021-05-15 19:07 | NUR ---
MS RN CLOSING NOTES PATIENT IN BED, AWAKE, A/O X 1. PATIENT WITH REGULAR AND UNLABORED BREATHING ON 4LPM VIA NASAL CANULA, TOLERATED WELL. NO SIGNS AND SYMPTOMS OF ACUTE DISTRESS NOTED AT THIS TIME. NO S/SX OF PAIN OR DISCOMFORT AT THIS TIME. NASOGASTRIC TUBE IN PLACE ONGOING GLUCERNA 1.2 RUNNING @ 45 ML/HR, TOLERATING WELL, NO RESIDUAL NOTED. IV ACCESS IDRIS PICC LINE INFUSING D5 1/2 NS @ 75 ML/HR. IV ACCESS PATENT AND INTACT, NO S/SX OF INFILTRATION NOTED. SOFT WRIST RESTRAINT NOTED ON LEFT WRIST. WIT FC CONNECTED TO URINE BAG DRAINING CLEAR YELLOW COLORED URINE. SAFETY PRECAUTIONS ENFORCED WITH BED LOCKED AND AT LOWEST POSITION. SIDE RAILS UP X2. CALL LIGHT WITHIN REACH AT ALL TIMES. ENDORSED TO GUARD ENTRANCE REGISTRAR NURSE FOR TEENA.
--- NOTE | 2021-05-15 19:30 | NUR ---
MS RN OPENING NOTE RECEIVED PATIENT IN BED, A/OX1-- MACEDONIAN SPEAKING. NO S/S OF APPARENT DISTRESS ON 4LPM OF O2 VIA NC. NG-TUBE IN R. NARE WITH LENGTH OF 55CM-- GLUCERNA RUNNING AT 45CC/HR. NOT EXHIBITING PAIN VIA FLACC. NOTED TO HAVE L. SOFT WRIST RESTRAINTS ON. KENT CATHETER DRAINING CLEAR, YELLOW URINE. D5 1/2 NS RUNNING AT 75 CC/HR. SAFETY IN PLACE. WILL CONTINUE WITH PLAN OF CARE FOR PATIENT.
[2021-05-15 20:00] VITALS: BP 148/79
[2021-05-15] MEDS: INSULIN GLARGINE, 100 UNIT/ML CARTRIDGE SQ SCH (22:22)
--- NOTE | 2021-05-15 22:25 | NUR ---
MS RN NOTE BLOOD SUGAR 157. INSULIN LANTUS GIVEN. 20 UNITS. WILL RECHECK BLOOD SUGAR AT MIDNIGHT.
[2021-05-16] MEDS: ACETYLCYSTEINE 10% SOLN 400 MG/4 ML VIAL NEB SCH ×4 (00:02→23:27)
[2021-05-16] MEDS: BLOOD SUGAR DIAGNOSTIC 1 EACH STRIP IN SCH ×4 (00:34→18:12)
[2021-05-16] MEDS: INSULIN REGULAR, HUMAN 100 UNIT/ML 3 ML VIAL SQ PRN ×3 (00:37→18:13)
[2021-05-16] MEDS: DEXTROSE 50%-WATER 50 ML DISP.SYRIN IV PRN (06:48)
[2021-05-16 07:15] LABS: BASOPHILS # (AUTO) 0.1 K/uL (0.0-0.2); BASOPHILS % (AUTO) 1.1 % (0.0-2.0); EOSINOPHILS % (AUTO) 4.4 % (0.0-6.0); HEMATOCRIT 28 % (33-45); HEMOGLOBIN 9.2 g/dL (11.5-14.8); LYMPHOCYTES # (AUTO) 0.8 K/uL (0.8-4.8); LYMPHOCYTES % (AUTO) 10.9 % (20.0-44.0); MEAN CORPUSCULAR HGB CONC 33 g/dl (31.0-36.0); MEAN CORPUSCULAR VOLUME 83 fL (82-100); MONOCYTES # (AUTO) 0.7 K/uL (0.1-1.30); MONOCYTES % (AUTO) 9.8 % (2.0-12.0); NEUTROPHILS # (AUTO) 5.5 K/uL (1.8-8.9); NEUTROPHILS % (AUTO) 73.8 % (43.0-81.0); PLATELET COUNT (AUTO) 775 K/uL (150-450); RED BLOOD CELL COUNT(AUTO) 3.35 MIL/uL (4.0-5.2); WHITE BLOOD COUNT (AUTO) 7.4 K/uL (4.3-11.0)
--- NOTE | 2021-05-16 07:29 | NUR ---
MS RN OPENING NOTES PATIENT RECEIVED AWAKE IN BED IN NO ACUTE SIGNS OF DISTRESS. A/O X 1. NIGERIEN SPEAKING, CONFUSED WITH NO S/SX OF PAIN OR DISCOMFORT AT THIS TIME. SOFT WRIST RESTRAINT ON LEFT WRIST IN PLACE. PATIENT ON 02 4LPM VIA N/C, TOLERATING WELL, BREATHING EVEN AND UNLABORED. PT WITH NGT ON RIGHT NARE WITH ONGOING FEEDING OF GLUCERNA 1.2 @ 55 ML/HR, TOLERATING WELL. ASPIRATION PRECAUTIONS MAINTAINED. IDRIS PICC LINE INTACT, PATENT AND FLUSHES WELL. KENT IN PLACE DRAINING VIA GRAVITY CLEAR YELLOW COLORED URINE. SAFETY PRECAUTIONS MAINTAINED: BED LOCKED AND AT LOWEST POSITION. HOB KEPT ELEVATED, SIDE RAILS UP X2 AND CALL LIGHT WITHIN REACH. WILL CONTINUE TO MONITOR PT ACCORDINGLY.
[2021-05-16 07:49] LABS: CALCIUM, SERUM 7.8 mg/dL (8.5-10.1); CREATININE 1.1 mg/dL (0.6-1.3); MAGNESIUM 2.2 mg/dL (1.8-2.4); PHOSPHORUS 1.2 mg/dL (2.5-4.9)
--- NOTE | 2021-05-16 07:59 | NUR ---
MS CLOSING RN NOTE REPORT GIVEN TO WINDY FOR CONTINUITY OF CARE. NO SIGNIFICANT CHANGE FROM LAST ENDORSEMENT.
[2021-05-16] MEDS: MEROPENEM 1 G in IV NS 0.9% 100 ML IV SCH ×2 (08:07→21:18)
[2021-05-16 08:10] LABS: POTASSIUM 2.8 mmol/L (3.5-5.1)
--- NOTE | 2021-05-16 08:30 | NUR ---
RN NOTES RECEIVED CALL FROM TISSUE REWINDER LEENA GALVAN REGARDING PT HAVING CRITICAL LOW BLOOD GLUCOSE 45, AND POTASSIUM 2.8. DR CISSE MADE AWARE AND STATED THAT HE WILL PUT SOME ORDERS IN.
[2021-05-16 08:39] VITALS: BP 151/77
[2021-05-16] MEDS ORDERED: DEXTROSE 50%-WATER 50 ML DISP.SYRIN IVP ONE (09:00)
[2021-05-16] MEDS: POTASSIUM PHOSPHATE MM 15 MMOL in IV NS 0.9% 250 ML IV SCH ×2 (09:48→13:50)
[2021-05-16] MEDS: PANTOPRAZOLE 40 MG VIAL IV SCH ×2 (09:52→16:29)
[2021-05-16] MEDS: POTASSIUM CHLORIDE 20 MEQ TAB.PRT.SR PO SCH ×2 (09:54→16:28)
[2021-05-16] MEDS: LISINOPRIL (10MG) 10 MG TABLET PO SCH (09:55)
[2021-05-16] MEDS ORDERED: ZOSYN IVPB 3.375 G in IV D5W 50ml IV SCH (12:00)
[2021-05-16] MEDS: SCOPOLAMINE PATCH 1 MG/72HR TD SCH (12:05)
[2021-05-16] MEDS: GLUCERNA NG SCH (13:35)
[2021-05-16 16:07] VITALS: BP 142/85
[2021-05-16] MEDS ORDERED: POTASSIUM CHLORIDE 20 MEQ TAB.PRT.SR PO ONE (18:00)
--- NOTE | 2021-05-16 18:43 | NUR ---
MS RN CLOSING NOTES PATIENT IN BED AWAKE AND WATCHING TV AT THIS TIME. HOB ELEVATED. A/O X 1-2. BARBADIAN SPEAKING, CONFUSED ON AND OFF. SOFT WRIST RESTRAINT ON LEFT WRIST IN PLACE, SKIN AND CIRCULATION ON LEFT WRIST AND ARM WNL. PT ON 02 4LPM VIA N/C, TOLERATING WELL, BREATHING EVEN AND UNLABORED. PT WITH NGT ON RIGHT NARE WITH ONGOING FEEDING OF GLUCERNA 1.2 @ 55 ML/HR, TOLERATING WELL. ASPIRATION PRECAUTIONS MAINTAINED. IDRIS PICC LINE INTACT, PATENT AND FLUSHES WELL. KENT IN PLACE DRAINING VIA GRAVITY CLEAR YELLOW COLORED URINE, KENT CARE DONE. PT KEPT CLEAN, DRY AND COMFORTABLE AT ALL TIMES. ALL NEEDS AND CARE PROVIDED WELL. SAFETY PRECAUTIONS MAINTAINED: BED LOCKED AND AT LOWEST POSITION. HOB KEPT ELEVATED, SIDE RAILS UP X3 AND CALL LIGHT WITHIN REACH. WILL ENDORSE TEENA TO PUBLIC HEALTH NURSE.
[2021-05-16 20:00] VITALS: BP 114/73
--- NOTE | 2021-05-16 20:00 | NUR ---
RN NOTES RECEIVED PATIENT IN BED, ALERT/ORIENTED X1, CONFUSED, NON VERBAL, STABLE ON 4LPM VIA NC, NG TUBE, CHECKED PATENCY, CHECKED RESIDUAL, TOLERATING GLUCERNA AT 55 ML/HR, MET GOAL, ABDOMEN ROUNDED, IDRIS PICC LINE HEPLOCK ONLY, INCONTINENT OF BOWEL AND BLADDER, ASPIRATION PRECAUTION, KEPT HOB ELEVATED, WILL CONTINUE TO MONITOR.
[2021-05-16] MEDS: ACETAMINOPHEN 650 MG/SUPP.RECT RC PRN (22:24)
[2021-05-16] MEDS: INSULIN GLARGINE, 100 UNIT/ML CARTRIDGE SQ SCH (22:35)
[2021-05-17] MEDS: BLOOD SUGAR DIAGNOSTIC 1 EACH STRIP IN SCH ×4 (01:21→19:35)
[2021-05-17] MEDS: INSULIN REGULAR, HUMAN 100 UNIT/ML 3 ML VIAL SQ PRN ×2 (01:24→05:31)
--- NOTE | 2021-05-17 06:23 | NUR ---
ALERT/ORIENTED X1, CONFUSED, NON-VERBAL, STABLE ON 4LPM VIA NC, NO RESPIRATORY DISTRESS, STRICT ASPIRATION PRECAUTION, HOB KEPT AT > 45 DEGREES, NG TUBE FEEDING, GLUCERNA AT 55 ML/HR, TOLERATING WELL, SOFT STOOL, PERINEAL AND BUTTOCKS REDNESS, ZGUARD APPLIED, KEPT DRY AND CLEAN. ACCUCHECK, SLIDING SCALE, LANTUS 20 UNITS, IDRIS PICC LINE HEPLOCK ONLY, MERREM, CONTINUE SUPPORTIVE CARE, ABG, CXR, NO AM LABS.
[2021-05-17] MEDS: ACETYLCYSTEINE 10% SOLN 400 MG/4 ML VIAL NEB SCH ×3 (07:13→23:27)
--- NOTE | 2021-05-17 07:19 | NUR ---
MS RN OPENING NOTES RECEIVED PATIENT AWAKE IN BED IN NO ACUTE SIGNS OF DISTRESS. PATIENT IS A/O X 1, BELARUSIAN SPEAKING, CONFUSED WITH NO S/SX OF PAIN OR DISCOMFORT AT THIS TIME. SOFT WRIST RESTRAINT ON LEFT WRIST IN PLACE. PATIENT ON 02 4LPM VIA N/C, TOLERATING WELL, BREATHING EVEN AND UNLABORED. PT WITH NGT ON RIGHT NARE WITH ONGOING FEEDING OF GLUCERNA 1.2 @ 55 ML/HR, TOLERATING WELL. ASPIRATION PRECAUTIONS MAINTAINED. IDRIS PICC LINE INTACT, PATENT AND FLUSHES WELL. KENT IN PLACE DRAINING VIA GRAVITY CLEAR YELLOW COLORED URINE. SAFETY PRECAUTIONS MAINTAINED: BED LOCKED AND AT LOWEST POSITION. HOB KEPT ELEVATED, SIDE RAILS UP X2 AND CALL LIGHT WITHIN REACH. WILL CONTINUE TO MONITOR PT ACCORDINGLY.
[2021-05-17 08:35] VITALS: BP 149/74
[2021-05-17] MEDS: PANTOPRAZOLE 40 MG VIAL IV SCH ×2 (09:50→17:30)
[2021-05-17] MEDS: LISINOPRIL (10MG) 10 MG TABLET PO SCH (09:50)
[2021-05-17] MEDS: POTASSIUM CHLORIDE 20 MEQ TAB.PRT.SR PO SCH ×2 (09:50→17:30)
[2021-05-17] MEDS: MEROPENEM 1 G in IV NS 0.9% 100 ML IV SCH ×2 (09:59→21:04)
[2021-05-17 10:48] LABS: CALCIUM, SERUM 8.8 mg/dL (8.5-10.1); CARBON DIOXIDE 29 mmol/L (21-32); CHLORIDE 108 mmol/L (98-107); CREATININE 1.2 mg/dL (0.6-1.3); GLUCOSE 126 mg/dL (74-106); POTASSIUM 3.7 mmol/L (3.5-5.1); SODIUM SERUM 141 mmol/L (136-145); UREA NITROGEN, BLOOD 18 mg/dL (7-18)
[2021-05-17 10:56] LABS: ALANINE AMINOTRANSFERASE < 6 U/L (12-78); ALBUMIN 1.7 g/dL (3.4-5.0); ALKALINE PHOSPHATASE 133 U/L (46-116); ASPARTATE AMINOTRANSFERASE 16 U/L (15-37); BILIRUBIN,TOTAL 0.2 mg/dL (0.2-1.0); TOTAL PROTEIN, SERUM 6.6 g/dL (6.4-8.2)
[2021-05-17] MEDS: GLUCERNA NG SCH (15:43)
[2021-05-17 16:05] VITALS: BP 149/76
--- NOTE | 2021-05-17 19:00 | NUR ---
MS RN CLOSING NOTES PATIENT AWAKE IN BED IN NO ACUTE SIGNS OF DISTRESS. PATIENT IS A/O X 1, BARBADIAN SPEAKING, CONFUSED WITH NO S/SX OF PAIN OR DISCOMFORT AT THIS TIME. SOFT WRIST RESTRAINT ON LEFT WRIST IN PLACE. PATIENT ON 02 4LPM VIA N/C, TOLERATING WELL, BREATHING EVEN AND UNLABORED. PT WITH NGT ON RIGHT NARE WITH ONGOING FEEDING OF GLUCERNA 1.2 @ 55 ML/HR, TOLERATING WELL. ASPIRATION PRECAUTIONS MAINTAINED. IDRIS PICC LINE INTACT, PATENT AND FLUSHES WELL. KENT IN PLACE DRAINING VIA GRAVITY CLEAR YELLOW COLORED URINE. SAFETY PRECAUTIONS MAINTAINED: BED LOCKED AND AT LOWEST POSITION. HOB KEPT ELEVATED, SIDE RAILS UP X2 AND CALL LIGHT WITHIN REACH. WILL ENDORSE TO NEXT SHIFT FOR CONTINUITY OF CARE
--- NOTE | 2021-05-17 19:29 | NUR ---
MS RN OPENING NOTES RECEIVED PATIENT AWAKE IN BED IN NO ACUTE SIGNS OF DISTRESS. PATIENT IS A/O X 1, YAKUT SPEAKING, CONFUSED WITH NO S/SX OF PAIN OR DISCOMFORT AT THIS TIME. SOFT WRIST RESTRAINT ON LEFT WRIST IN PLACE. PATIENT ON 02 4LPM VIA N/C, TOLERATING WELL, BREATHING EVEN AND UNLABORED. PT WITH NGT ON RIGHT NARE WITH ONGOING FEEDING OF GLUCERNA 1.2 @ 55 ML/HR, TOLERATING WELL. ASPIRATION PRECAUTIONS MAINTAINED. IDRIS PICC LINE INTACT, PATENT AND FLUSHES WELL. KENT IN PLACE DRAINING VIA GRAVITY CLEAR YELLOW COLORED URINE. SAFETY PRECAUTIONS MAINTAINED: BED LOCKED AND AT LOWEST POSITION. HOB KEPT ELEVATED, SIDE RAILS UP X2 AND CALL LIGHT WITHIN REACH. WILL CONTINUE TO MONITOR.
[2021-05-17 20:00] VITALS: BP 132/70
[2021-05-17] MEDS: INSULIN GLARGINE, 100 UNIT/ML CARTRIDGE SQ SCH (22:24)
[2021-05-18] MEDS: INSULIN REGULAR, HUMAN 100 UNIT/ML 3 ML VIAL SQ PRN ×3 (00:11→17:39)
[2021-05-18] MEDS: BLOOD SUGAR DIAGNOSTIC 1 EACH STRIP IN SCH ×4 (00:14→17:39)
--- NOTE | 2021-05-18 04:48 | NUR ---
MS RN NOTES PT NOTED WITH RED SACRUM AND PERIDIUM WITH WHAT LOOKS LIKE AN INNER THIGH BLISTER. PICTURES TAKE AND PLACED IN CHART. WOUND CONSULT ORDERED.
--- NOTE | 2021-05-18 06:34 | NUR ---
MS RN CLOSING NOTES PATIENT AWAKE IN BED IN NO ACUTE SIGNS OF DISTRESS. PATIENT IS A/O X 1, SETSWANA SPEAKING, CONFUSED WITH NO S/SX OF PAIN OR DISCOMFORT AT THIS TIME. SOFT WRIST RESTRAINT ON LEFT WRIST IN PLACE. PATIENT ON 02 4LPM VIA N/C, TOLERATING WELL, BREATHING EVEN AND UNLABORED. PT WITH NGT ON RIGHT NARE WITH ONGOING FEEDING OF GLUCERNA 1.2 @ 55 ML/HR, TOLERATING WELL. ASPIRATION PRECAUTIONS MAINTAINED. IDRIS PICC LINE INTACT, PATENT AND FLUSHES WELL. KENT IN PLACE DRAINING VIA GRAVITY CLEAR YELLOW COLORED URINE. SAFETY PRECAUTIONS MAINTAINED: BED LOCKED AND AT LOWEST POSITION. HOB KEPT ELEVATED, SIDE RAILS UP X2 AND CALL LIGHT WITHIN REACH. WILL ENDORSE CARE TO [place]ST[place] SHIFT NURSE.
[2021-05-18 07:11] LABS: BASOPHILS # (AUTO) 0.1 K/uL (0.0-0.2); BASOPHILS % (AUTO) 1.1 % (0.0-2.0); EOSINOPHILS % (AUTO) 6.1 % (0.0-6.0); HEMATOCRIT 29 % (33-45); HEMOGLOBIN 9.4 g/dL (11.5-14.8); LYMPHOCYTES # (AUTO) 1.1 K/uL (0.8-4.8); LYMPHOCYTES % (AUTO) 15.4 % (20.0-44.0); MEAN CORPUSCULAR HGB CONC 33 g/dl (31.0-36.0); MEAN CORPUSCULAR VOLUME 84 fL (82-100); MONOCYTES # (AUTO) 0.7 K/uL (0.1-1.30); MONOCYTES % (AUTO) 9.9 % (2.0-12.0); NEUTROPHILS # (AUTO) 4.9 K/uL (1.8-8.9); NEUTROPHILS % (AUTO) 67.5 % (43.0-81.0); PLATELET COUNT (AUTO) 852 K/uL (150-450); RED BLOOD CELL COUNT(AUTO) 3.43 MIL/uL (4.0-5.2); WHITE BLOOD COUNT (AUTO) 7.3 K/uL (4.3-11.0)
[2021-05-18 07:28] LABS: ALBUMIN 1.7 g/dL (3.4-5.0); BILIRUBIN,TOTAL 0.1 mg/dL (0.2-1.0); CALCIUM, SERUM 9.3 mg/dL (8.5-10.1); CREATININE 1.3 mg/dL (0.6-1.3); POTASSIUM 3.5 mmol/L (3.5-5.1); TOTAL PROTEIN, SERUM 6.6 g/dL (6.4-8.2)
--- NOTE | 2021-05-18 07:30 | NUR ---
PT RECEIVED RESTING COMFORTABLY IN BED. NO S/S OR C/O PAIN OR DISTRESS NOTED. SIDE RAILS UP X2, CALL LIGHT LEFT WITHIN REACH. WILL CONTINUE PLAN OF CARE.
[2021-05-18] MEDS: LISINOPRIL (10MG) 10 MG TABLET PO SCH (08:17)
[2021-05-18] MEDS: POTASSIUM CHLORIDE 20 MEQ TAB.PRT.SR PO SCH (08:17)
[2021-05-18] MEDS: PANTOPRAZOLE 40 MG VIAL IV SCH (08:17)
[2021-05-18] MEDS: MEROPENEM 1 G in IV NS 0.9% 100 ML IV SCH ×2 (08:19→20:08)
[2021-05-18] MEDS: ACETYLCYSTEINE 10% SOLN 400 MG/4 ML VIAL NEB SCH ×2 (08:26→14:44)
--- NOTE | 2021-05-18 08:36 | NUR ---
WOUND CARE CONSULT: PT PRESENTS WITH SACRAL SCAR, PRESENT ON ADMISSION. HEALED AREA NOTED TO RT ABDOMEN. THERE IS REDNESS/RASH TO PERINEUM, INNER THIGHS, BUTTOCKS WELL RAISED RED AREA TO LEFT INNER THIGH. SURGICAL CONSULT CALLED TO DR ROSARIO FOR THIGH. RECOMMENDATIONS MADE FOR RASH AND SKIN PROTECTION. DISCUSSED WITH NURSING STAFF. PT IS ON ACE ISOFLEX LOW [id number] BED. IN AGREEMENT WITH PLAN OF CARE. Addendum: 05/18/21 at 0837 by JEANIE FERRO WNDNU Amended: Links added.
[2021-05-18 08:39] VITALS: BP 160/84
[2021-05-18] MEDS: CLOTRIMAZOLE 1% 15 GM TUBE TP SCH ×2 (10:11→17:39)
[2021-05-18] MEDS: IV NS 0.9% 1,000 ML IV PRN (11:01)
[2021-05-18] MEDS: PANTOPRAZOLE 40 MG TABLET.DR PO SCH (11:57)
[2021-05-18 16:04] VITALS: BP 136/98
--- NOTE | 2021-05-18 19:01 | NUR ---
CHANGE OF SHIFT REPORT PT RESTING COMFORTABLY IN BED. NO S/S OR C/O PAIN OR DISTRESS NOTED. SIDE RAILS UP X2, CALL LIGHT LEFT WITHIN REACH. PT KEPT CLEAN, DRY, AND COMFORTABLE, NO SIGNIFICANT CHANGES SINCE PREVIOUS SHIFT. WILL GIVE REPORT TO TRICIA HE.
--- NOTE | 2021-05-18 19:30 | NUR ---
MS RN OPENING NOTES RECEIVED PATIENT AWAKE IN BED. A/O X 1, WOLOF SPEAKING, CONFUSED. PATIENT ON 02 4LPM VIA NC, TOLERATING WELL, BREATHING EVEN AND UNLABORED. NGT ON RIGHT NARE RUNNING GLUCERNA 1.2 @ 55 ML/HR, TOLERATING WELL. ASPIRATION PRECAUTIONS MAINTAINED. IV ACCESS IDRIS PICC LINE INTACT, PATENT AND FLUSHES WELL. KENT IN PLACE DRAINING CLEAR YELLOW COLORED URINE. SAFETY PRECAUTIONS IN PLACE. BED IN LOWEST LOCKED POSITION, HOB ELEVATED, SIDE RAILS UP X3, AND CALL LIGHT AND TABLE WITHIN REACH. WILL CONTINUE WITH PLAN OF CARE.
[2021-05-18] MEDS: INSULIN GLARGINE, 100 UNIT/ML CARTRIDGE SQ SCH (21:35)
--- NOTE | 2021-05-19 | NUR ---
RN NOTE BS WAS 163. HELD INSULIN D/T NPO STATUS. VSS. WILL CONTINUE WITH PLAN OF CARE.
[2021-05-19] MEDS: BLOOD SUGAR DIAGNOSTIC 1 EACH STRIP IN SCH ×5 (00:20→22:06)
[2021-05-19] MEDS: IV NS 0.9% 1,000 ML IV PRN ×2 (00:21→18:26)
[2021-05-19] MEDS: ACETYLCYSTEINE 10% SOLN 400 MG/4 ML VIAL NEB SCH ×3 (00:22→14:43)
[2021-05-19 03:37] VITALS: BP 147/77
--- NOTE | 2021-05-19 05:54 | NUR ---
RN NOTE BS WAS 143. HELD INSULIN D/T NPO STATUS. VSS. WILL CONTINUE WITH PLAN OF CARE.
--- NOTE | 2021-05-19 06:58 | NUR ---
MS RN CLOSING NOTES PATIENT AWAKE IN BED. A/O X 1, MACEDONIAN SPEAKING, CONFUSED. PATIENT ON 02 4LPM VIA NC, TOLERATING WELL, BREATHING EVEN AND UNLABORED. NGT ON RIGHT NARE KEPT NPO AFTER MIDNIGHT. ASPIRATION PRECAUTIONS MAINTAINED. IV ACCESS IDRIS PICC LINE INTACT RUNNING NS @ 100 ML/HR. KENT IN PLACE DRAINING CLEAR YELLOW COLORED URINE. ALL NEEDS MET AT THIS TIME. SAFETY PRECAUTIONS IN PLACE AT ALL TIMES. BED IN LOWEST LOCKED POSITION, HOB ELEVATED, SIDE RAILS UP X3, AND CALL LIGHT AND TABLE WITHIN REACH. WILL ENDORSE TO ONCOMING SHIFT FOR TEENA.
[2021-05-19 07:57] LABS: BASOPHILS # (AUTO) 0.1 K/uL (0.0-0.2); BASOPHILS % (AUTO) 1.4 % (0.0-2.0); EOSINOPHILS % (AUTO) 6.5 % (0.0-6.0); HEMATOCRIT 27 % (33-45); HEMOGLOBIN 8.8 g/dL (11.5-14.8); LYMPHOCYTES # (AUTO) 1.3 K/uL (0.8-4.8); MEAN CORPUSCULAR HGB CONC 32 g/dl (31.0-36.0); MEAN CORPUSCULAR VOLUME 84 fL (82-100); MONOCYTES # (AUTO) 0.7 K/uL (0.1-1.30); MONOCYTES % (AUTO) 10.5 % (2.0-12.0); NEUTROPHILS # (AUTO) 4.3 K/uL (1.8-8.9); NEUTROPHILS % (AUTO) 62.6 % (43.0-81.0); PLATELET COUNT (AUTO) 881 K/uL (150-450); RED BLOOD CELL COUNT(AUTO) 3.26 MIL/uL (4.0-5.2); WHITE BLOOD COUNT (AUTO) 6.9 K/uL (4.3-11.0)
--- NOTE | 2021-05-19 07:58 | NUR ---
MS RN OPENING NOTES RECEIVED Pt AWAKE IN BED. A/O X 1, Pt IS LUXEMBOURGER SPEAKING AND IS CONFUSED. PATIENT ON O2 4LPM VIA NC, TOLERATING WELL, BREATHING EVEN AND UNLABORED. NGT ON RIGHT NARE CURRENTLY NPO. ASPIRATION PRECAUTIONS MAINTAINED. IV ACCESS R UA PICC LINE INTACT, PATENT AND FLUSHES WELL. KENT IN PLACE DRAINING CLEAR YELLOW COLORED URINE. SAFETY PRECAUTIONS IN PLACE. BED IS LOCKED AND IN LOWEST POSITION, HOB ELEVATED, SIDE RAILS UP X3, AND CALL LIGHT AND BEDSIDE TABLE WITHIN REACH. WILL CONTINUE TO MONITOR THROUGHOUT THE SHIFT
[2021-05-19] MEDS: MEROPENEM 1 G in IV NS 0.9% 100 ML IV SCH (08:48)
[2021-05-19] MEDS: CLOTRIMAZOLE 1% 15 GM TUBE TP SCH ×2 (08:49→18:06)
[2021-05-19 08:51] VITALS: BP 134/68
[2021-05-19 08:54] LABS: ALBUMIN 1.7 g/dL (3.4-5.0); BILIRUBIN,TOTAL 0.2 mg/dL (0.2-1.0); CALCIUM, SERUM 8.8 mg/dL (8.5-10.1); CREATININE 1.2 mg/dL (0.6-1.3); POTASSIUM 3.2 mmol/L (3.5-5.1); TOTAL PROTEIN, SERUM 6.5 g/dL (6.4-8.2)
[2021-05-19] MEDS: LISINOPRIL (10MG) 10 MG TABLET PO SCH (08:57)
[2021-05-19] MEDS: PANTOPRAZOLE 40 MG TABLET.DR PO SCH (08:57)
[2021-05-19] MEDS ORDERED: POTASSIUM CHLORIDE 20 MEQ POWDER PACKET NG SCH ×2 (10:30→12:30)
[2021-05-19] MEDS: SCOPOLAMINE PATCH 1 MG/72HR TD SCH (11:42)
[2021-05-19] MEDS: INSULIN REGULAR, HUMAN 100 UNIT/ML 3 ML VIAL SQ PRN ×2 (14:12→18:05)
[2021-05-19 16:13] VITALS: BP 133/70
--- NOTE | 2021-05-19 18:49 | NUR ---
MS YING CLOSING NOTES Pt IS AWAKE IN BED AND A/O X 1, Pt IS IRISH SPEAKING AND CONFUSED. Pt IS ON ROOM AIR AND TOLERATING WELL AT THIS TIME, BREATHING IS EVEN AND UNLABORED. NGT ON RIGHT NARE. Pt HAS SOFT RESTRAINTS ON R ARM SHE TRIES TO PULL OF NG TUBE. Pt STARTED ON GLUCERNA AND IS CURRENTLY TOLERATING WELL. ASPIRATION PRECAUTIONS MAINTAINED. IV ACCESS R UA PICC LINE INTACT RUNNING NS @ 100 ML/HR. KENT IN PLACE DRAINING CLEAR YELLOW COLORED URINE. ALL NEEDS MET AT THIS TIME. SAFETY PRECAUTIONS IN PLACE AT ALL TIMES. BED IS LOCKED AND IN LOWEST POSITION. SIDE RAILS UP x3. CALL LIGHT AND BED SIDE TABLE WITHIN REACH. HOB ELEVATED. WILL ENDORSE TO ONCOMING SHIFT. Addendum: 05/19/21 at 1930 by KAY BARTH RN SOFT RESTRAINT ON L HAND.
[2021-05-19 20:00] VITALS: BP 157/80
[2021-05-19] MEDS: INSULIN GLARGINE, 100 UNIT/ML CARTRIDGE SQ SCH (22:12)
[2021-05-20] MEDS: ACETYLCYSTEINE 10% SOLN 400 MG/4 ML VIAL NEB SCH ×4 (01:50→23:03)
[2021-05-20] MEDS: GLUCERNA NG SCH (05:02)
[2021-05-20] MEDS: BLOOD SUGAR DIAGNOSTIC 1 EACH STRIP IN SCH ×3 (06:39→18:45)
[2021-05-20] MEDS: INSULIN REGULAR, HUMAN 100 UNIT/ML 3 ML VIAL SQ PRN (06:47)
--- NOTE | 2021-05-20 07:10 | NUR ---
Ending notes: alert orientated X1 yumi wrist restraints on D/T pulls at the NGT and tries to remove NGT feeding infusin 55 ml hr aspiration precautions 1 BM this 12 hours
[2021-05-20 07:22] LABS: BASOPHILS # (AUTO) 0.1 K/uL (0.0-0.2); BASOPHILS % (AUTO) 1.4 % (0.0-2.0); EOSINOPHILS % (AUTO) 5.8 % (0.0-6.0); HEMATOCRIT 30 % (33-45); HEMOGLOBIN 9.6 g/dL (11.5-14.8); LYMPHOCYTES # (AUTO) 1.7 K/uL (0.8-4.8); LYMPHOCYTES % (AUTO) 18.9 % (20.0-44.0); MEAN CORPUSCULAR HGB CONC 32 g/dl (31.0-36.0); MEAN CORPUSCULAR VOLUME 85 fL (82-100); MONOCYTES % (AUTO) 11.3 % (2.0-12.0); NEUTROPHILS # (AUTO) 5.6 K/uL (1.8-8.9); NEUTROPHILS % (AUTO) 62.6 % (43.0-81.0); RED BLOOD CELL COUNT(AUTO) 3.52 MIL/uL (4.0-5.2); WHITE BLOOD COUNT (AUTO) 8.9 K/uL (4.3-11.0)
--- NOTE | 2021-05-20 07:22 | NUR ---
MS RN OPENING NOTES PATIENT AWAKE IN BED IN NO ACUTE SIGNS OF DISTRESS. PATIENT IS A/O X 1, SUDANESE SPEAKING, CONFUSED WITH NO S/SX OF PAIN OR DISCOMFORT AT THIS TIME. SOFT WRIST RESTRAINT ON BOTH WRISTS IN PLACE. WITH GOOD HAND CIRCULATION AND INTACT SENSORY AND MOTOR REFLEXES. PATIENT ON 02 4LPM VIA N/C, TOLERATING WELL, BREATHING EVEN AND UNLABORED. PT WITH NGT WITH ONGOING FEEDING OF GLUCERNA 1.2 @ 55 ML/HR, TOLERATING WELL. ASPIRATION PRECAUTIONS MAINTAINED. IDRIS PICC LINE INTACT, PATENT AND FLUSHES WELL. KENT IN PLACE DRAINING VIA GRAVITY CLEAR YELLOW COLORED URINE. SAFETY PRECAUTIONS MAINTAINED: BED LOCKED AND AT LOWEST POSITION. HOB KEPT ELEVATED, SIDE RAILS UP X2 AND CALL LIGHT WITHIN REACH. WILL CONTINUE TO MONITOR PATIENT.
[2021-05-20 07:41] LABS: PLATELET COUNT (AUTO) 956 K/uL (150-450)
[2021-05-20 07:51] LABS: ALANINE AMINOTRANSFERASE < 6 U/L (12-78); ALBUMIN 1.8 g/dL (3.4-5.0); ALKALINE PHOSPHATASE 125 U/L (46-116); ASPARTATE AMINOTRANSFERASE 19 U/L (15-37); BILIRUBIN,TOTAL 0.1 mg/dL (0.2-1.0); CARBON DIOXIDE 26 mmol/L (21-32); CHLORIDE 109 mmol/L (98-107); CREATININE 1.1 mg/dL (0.6-1.3); GLUCOSE 180 mg/dL (74-106); MAGNESIUM 2.2 mg/dL (1.8-2.4); PHOSPHORUS 2.5 mg/dL (2.5-4.9); SODIUM SERUM 144 mmol/L (136-145); TOTAL PROTEIN, SERUM 6.9 g/dL (6.4-8.2); UREA NITROGEN, BLOOD 23 mg/dL (7-18)
--- NOTE | 2021-05-20 08:00 | NUR ---
MS RN NOTE LABORATORY RESULT OF PLATELET RELAYED TO DR. ROJAS. NO SIGNS AND SYMPTOMS OF CLOTTING NOTED AT THIS TIME. WILL CONTINUE TO MONITOR PATIENT.
[2021-05-20 08:14] VITALS: BP 140/77
[2021-05-20] MEDS: PANTOPRAZOLE 40 MG TABLET.DR PO SCH (08:22)
[2021-05-20] MEDS: LISINOPRIL (10MG) 10 MG TABLET PO SCH (08:23)
[2021-05-20] MEDS: CLOTRIMAZOLE 1% 15 GM TUBE TP SCH ×2 (08:23→18:06)
--- NOTE | 2021-05-20 10:30 | NUR ---
MS RN NOTE PATIENT ON POSSIBLE SURGERY TO DAY FOR PEG PLACEMENT. CONSENT AT BEDSIDE. WILL CONTINUE TO MONITOR.
[2021-05-20] MEDS: POTASSIUM CHLORIDE 20 MEQ POWDER PACKET NG SCH ×2 (12:57→13:53)
[2021-05-20] MEDS: DOXYCYCLINE HYCLATE (100 MG) 100 MG TABLET PO SCH ×2 (13:00→20:40)
[2021-05-20 16:37] VITALS: BP 121/87
[2021-05-20 20:00] VITALS: BP_SYST 131; BP_SYST 137; BP_DIAS 85
--- NOTE | 2021-05-20 20:23 | NUR ---
Received in bed confused and restless moving about in bed kicking off her covers sliding down the bed NGT checked for placement and in stomach no residual HOB elevated asp precautions NGT retaped and secured
[2021-05-20] MEDS: LORAZEPAM INJ 2 MG/ML VIAL IV PRN (20:35)
[2021-05-20] MEDS: INSULIN GLARGINE, 100 UNIT/ML CARTRIDGE SQ SCH (21:47)
[2021-05-21] MEDS: BLOOD SUGAR DIAGNOSTIC 1 EACH STRIP IN SCH ×5 (00:01→23:50)
[2021-05-21] MEDS: GLUCERNA NG SCH ×2 (00:34→00:36)
[2021-05-21] MEDS: IV D5/ 0.9% NACL 1,000 ML IV PRN ×2 (00:46→13:33)
[2021-05-21 06:42] LABS: BASOPHILS # (AUTO) 0.1 K/uL (0.0-0.2); BASOPHILS % (AUTO) 1.1 % (0.0-2.0); HEMATOCRIT 30 % (33-45); HEMOGLOBIN 9.8 g/dL (11.5-14.8); LYMPHOCYTES # (AUTO) 1.9 K/uL (0.8-4.8); LYMPHOCYTES % (AUTO) 20.7 % (20.0-44.0); MEAN CORPUSCULAR HGB CONC 33 g/dl (31.0-36.0); MEAN CORPUSCULAR VOLUME 84 fL (82-100); MONOCYTES % (AUTO) 10.4 % (2.0-12.0); NEUTROPHILS # (AUTO) 5.9 K/uL (1.8-8.9); NEUTROPHILS % (AUTO) 62.8 % (43.0-81.0); PLATELET COUNT (AUTO) 897 K/uL (150-450); RED BLOOD CELL COUNT(AUTO) 3.58 MIL/uL (4.0-5.2); WHITE BLOOD COUNT (AUTO) 9.4 K/uL (4.3-11.0)
[2021-05-21 07:01] LABS: BILIRUBIN,TOTAL 0.2 mg/dL (0.2-1.0); CALCIUM, SERUM 9.4 mg/dL (8.5-10.1); CREATININE 1.1 mg/dL (0.6-1.3); POTASSIUM 3.2 mmol/L (3.5-5.1)
--- NOTE | 2021-05-21 07:15 | NUR ---
MS RN OPENING NOTES PATIENT ASLEEP IN BED IN NO ACUTE SIGNS OF DISTRESS. PATIENT IS A/O X 1, BENGALI SPEAKING, CONFUSED WITH NO S/SX OF PAIN OR DISCOMFORT AT THIS TIME. WITH RIGHT SIDED BODY WEAKNESS. SOFT WRIST RESTRAINT ON BOTH WRISTS IN PLACE. WITH GOOD HAND CIRCULATION AND INTACT SENSORY AND MOTOR REFLEXES. PATIENT ON 02 3LPM VIA N/C, TOLERATING WELL, BREATHING EVEN AND UNLABORED. PT WITH NGT WITH ONGOING FEEDING ON HOLD FOR SURGERY. ASPIRATION PRECAUTIONS MAINTAINED. IDRIS PICC LINE INTACT, WITH IVF OF D5NS AT 75ML/HR. KENT IN PLACE DRAINING VIA GRAVITY CLEAR YELLOW COLORED URINE. SAFETY PRECAUTIONS MAINTAINED: BED LOCKED AND AT LOWEST POSITION. HOB KEPT ELEVATED, SIDE RAILS UP X2 AND CALL LIGHT WITHIN REACH. WILL CONTINUE TO MONITOR PATIENT.
[2021-05-21 08:00] VITALS: BP 154/115
[2021-05-21] MEDS: ACETYLCYSTEINE 10% SOLN 400 MG/4 ML VIAL NEB SCH ×2 (08:12→16:22)
[2021-05-21] MEDS: DOXYCYCLINE HYCLATE (100 MG) 100 MG TABLET PO SCH ×2 (08:21→22:04)
[2021-05-21] MEDS: PANTOPRAZOLE 40 MG TABLET.DR PO SCH (08:21)
[2021-05-21] MEDS: LISINOPRIL (10MG) 10 MG TABLET PO SCH (08:22)
[2021-05-21] MEDS: CLOTRIMAZOLE 1% 15 GM TUBE TP SCH ×2 (09:08→18:31)
[2021-05-21] MEDS ORDERED: ANESTHESIA TRAY IN PYXIS 1 EA TRAY MC ONE (09:47)
[2021-05-21] MEDS ORDERED: POTASSIUM CHLORIDE 20 MEQ POWDER PACKET NG SCH (10:00)
--- NOTE | 2021-05-21 10:09 | NUR ---
MS RN NOTE PATIENT PICKED UP BY OR NURSES FOR SCHEDULED PROCEDURE, PEG INSERTION. WILL CONTINUE TO MONITOR PATIENT.
--- NOTE | 2021-05-21 10:12 | NUR ---
ADDENDUM CONSENT SECURED FROM AND ATTACHED TO CHART.
--- NOTE | 2021-05-21 12:28 | NUR ---
MS RN NOTE PATIENT BACK FROM RECOVERY ROOM. WITH G TUBE WITH DRESSING, DRY AND INTACT. NO SIGNS AND SYMPTOMS OF PAIN. COMFORT MEASURES PROVIDED. VS 152/71, 102, 98% 21, 98.3. WILL CONTINUE TO MONITOR PATIENT.
[2021-05-21] MEDS: POTASSIUM CL. PREMIX PERIPHER. 50 ML IV SCH ×4 (12:58→16:31)
[2021-05-21 16:00] VITALS: BP 145/81
[2021-05-21] MEDS: HYDROMORPHONE INJ 2 MG/ML DISP.SYRIN IV PRN ×2 (16:40→22:53)
--- NOTE | 2021-05-21 18:47 | NUR ---
MS RN CLOSING NOTES PATIENT AWAKE IN BED IN NO ACUTE SIGNS OF DISTRESS. PATIENT IS A/O X 1, YI SPEAKING, CONFUSED WITH NO S/SX OF PAIN OR DISCOMFORT AT THIS TIME. WITH RIGHT-SIDED BODY WEAKNESS. SOFT WRIST RESTRAINT ON BOTH WRISTS IN PLACE. WITH GOOD HAND CIRCULATION AND INTACT SENSORY AND MOTOR REFLEXES. PATIENT ON 02 3LPM VIA N/C, TOLERATING WELL, BREATHING EVEN AND UNLABORED. PT WITH G-TUBE FEEDING ON HOLD AT THE MOMENT ORDERED. ASPIRATION PRECAUTIONS MAINTAINED. IDRIS PICC LINE INTACT, WITH IVF OF D5NS AT 75ML/HR. KENT IN PLACE DRAINING VIA GRAVITY CLEAR YELLOW COLORED URINE. WITH LEFT THIGH DRESSING DRY AND INTACT. SAFETY PRECAUTIONS MAINTAINED: BED LOCKED AND AT LOWEST POSITION. HOB KEPT ELEVATED, SIDE RAILS UP X2 AND CALL LIGHT WITHIN REACH. WILL CONTINUE TO MONITOR PATIENT.
--- NOTE | 2021-05-21 19:35 | NUR ---
MS RN OPENING NOTES RECEIVED REPORT AT PATIENT'S BEDSIDE. PATIENT'S EYES CLOSED, SNORING. RR EVEN AND UNLABORED. EASILY AROUSED BY TOUCH, IN NAD AND STABLE AT THIS TIME. PATIENT IS A/O X 1, FAROESE SPEAKING, CONFUSED WITH NO S/SX OF PAIN OR DISCOMFORT AT THIS TIME. WITH RIGHT-SIDED BODY WEAKNESS. SOFT WRIST RESTRAINT ON BOTH WRISTS IN PLACE. HAND CIRCULATION WNL AND INTACT SENSORY/MOTOR REFLEXES. PATIENT IS STABLE ON 3L O2 VIA N/C, TOLERATING WELL WITHOUT DIFFICULTY. PT S/P G-TUBE PLACEMENT WITH ORDERS TO START FEEDING TOMORROW AM. NO S/SX OF PAIN OBSERVED/REPORTED AT THIS TIME. ASPIRATION PRECAUTIONS IN PLACE AND MAINTAINED, HOB ELEVATED TO SEMI-FOWLERS POSITION AT THIS TIME. IDRIS TRIPLE LUMEN PICC LINE INTACT, IVF RUNNING D5NS AT 75ML/HR WITHOUT COMPLICATION. NO S/SX OF ERYTHEMA/INFILTRATION TO OR SURROUNDING IV CATHETER INSERTION SITE. DRESSING C/D/I. F/C IN PLACE AND PATENT DRAINING CLEAR YELLOW COLORED URINE. LEFT THIGH DRESSING C/D/I. SAFETY PRECAUTIONS MAINTAINED: BED LOCKED AND AT LOWEST POSITION, SIDE RAILS UP X2, CALL LIGHT WITHIN REACH. .
[2021-05-21 20:50] VITALS: BP 140/78
[2021-05-21] MEDS: INSULIN GLARGINE, 100 UNIT/ML CARTRIDGE SQ SCH (22:00)
[2021-05-21] MEDS: INSULIN REGULAR, HUMAN 100 UNIT/ML 3 ML VIAL SQ PRN (22:44)
--- NOTE | 2021-05-21 22:46 | NUR ---
MS RN NOTE: LANTUS 20U HELD D/T PATIENT'S NPO STATUS/NO GTUBE FEED UNTIL AM
[2021-05-22] VITALS: BP 140/78
[2021-05-22] MEDS: ACETYLCYSTEINE 10% SOLN 400 MG/4 ML VIAL NEB SCH ×3 (00:08→14:58)
[2021-05-22] MEDS: BLOOD SUGAR DIAGNOSTIC 1 EACH STRIP IN SCH ×2 (05:44→13:28)
[2021-05-22] MEDS: INSULIN REGULAR, HUMAN 100 UNIT/ML 3 ML VIAL SQ PRN ×2 (05:45→13:09)
[2021-05-22] MEDS: GLUCERNA NG SCH (05:54)
--- NOTE | 2021-05-22 05:55 | NUR ---
MS RN NOTE: 0410: GLUCERNA 1.2 STARTED INFUSION TO G-TUBE @55 ML/HR 0530: G-TUBE CHECKED FOR RESIDUAL. 50ML RESIDUAL OBSERVED, GIVEN BACK TO PATIENT. WILL RECHECK IN 1 HOUR.
--- NOTE | 2021-05-22 06:30 | NUR ---
MS RN NOTE: RECHECKED G-TUBE INFUSING GLUCERNA FOR RESIDUAL. 10ML RESIDUAL OBSERVED. GIVEN BACK TO PATIENT.
[2021-05-22 06:51] LABS: BASOPHILS # (AUTO) 0.1 K/uL (0.0-0.2); EOSINOPHILS % (AUTO) 3.3 % (0.0-6.0); HEMATOCRIT 29 % (33-45); HEMOGLOBIN 9.2 g/dL (11.5-14.8); LYMPHOCYTES # (AUTO) 1.3 K/uL (0.8-4.8); LYMPHOCYTES % (AUTO) 12.4 % (20.0-44.0); MEAN CORPUSCULAR HGB CONC 32 g/dl (31.0-36.0); MEAN CORPUSCULAR VOLUME 85 fL (82-100); MONOCYTES % (AUTO) 8.9 % (2.0-12.0); NEUTROPHILS % (AUTO) 74.4 % (43.0-81.0); PLATELET COUNT (AUTO) 854 K/uL (150-450); RED BLOOD CELL COUNT(AUTO) 3.37 MIL/uL (4.0-5.2); WHITE BLOOD COUNT (AUTO) 10.8 K/uL (4.3-11.0)
--- NOTE | 2021-05-22 07:05 | NUR ---
MS RN CLOSING NOTE: REPORTED OFF TO ONCOMING RN. NO CHANGE IN RESIDENT'S CONDITION. PATIENT IS STABLE AND IN NAD AT THIS TIME. G-TUBE FEEDING INFUSING PER ORDER WITHOUT COMPLICATION.
[2021-05-22 07:30] LABS: CALCIUM, SERUM 8.7 mg/dL (8.5-10.1); CREATININE 1.1 mg/dL (0.6-1.3); POTASSIUM 3.4 mmol/L (3.5-5.1)
[2021-05-22 07:37] LABS: BILIRUBIN,TOTAL 0.2 mg/dL (0.2-1.0); TOTAL PROTEIN, SERUM 6.9 g/dL (6.4-8.2)
--- NOTE | 2021-05-22 07:40 | NUR ---
RN OPENING NOTES Patient seen comfortably lying in bed, no apparent distress noted, respirations even and unlabored, no shortness of breath, no grimacing. Call light left within reach, safety precautions in place, brakes locked, side rails up X 2, will monitor closely for any changes.
[2021-05-22 08:00] VITALS: BP 149/99
[2021-05-22] MEDS ORDERED: Insulin Glargine,Hum SQ (09:05)
[2021-05-22] MEDS ORDERED: ACET1OOV6 NEB (09:05)
[2021-05-22] MEDS ORDERED: CLOT15CR35 TP (09:05)
[2021-05-22] MEDS ORDERED: NUT.237L45 NG (09:05)
[2021-05-22] MEDS ORDERED: PANT40TA49 PO (09:05)
[2021-05-22] MEDS ORDERED: INSU100V28 SQ (09:05)
[2021-05-22] MEDS ORDERED: DOXY100T2 PO (09:05)
[2021-05-22] MEDS ORDERED: LISI10TA29 PO (09:05)
[2021-05-22] MEDS: LISINOPRIL (10MG) 10 MG TABLET PO SCH (09:47)
[2021-05-22] MEDS: PANTOPRAZOLE 40 MG TABLET.DR PO SCH (09:47)
[2021-05-22] MEDS: DOXYCYCLINE HYCLATE (100 MG) 100 MG TABLET PO SCH (09:48)
[2021-05-22] MEDS ORDERED: POTASSIUM CHLORIDE 20 MEQ POWDER PACKET NG SCH ×2 (10:00→11:30)
[2021-05-22] MEDS: SCOPOLAMINE PATCH 1 MG/72HR TD SCH (10:07)
[2021-05-22] MEDS: CLOTRIMAZOLE 1% 15 GM TUBE TP SCH (13:43)
[2021-05-22 16:00] VITALS: BP 128/88
--- NOTE | 2021-05-22 16:45 | NUR ---
Patient to be discharged to [facility] (phone: [phone]) today spoke to Dahiana RN, no apparent distress noted, no shortness of breath, respirations even and unlabored, denies any pain or discomfort. No grimacing when abdomen palpated, abdominal bowel sound present in all quadrants. Patient made aware of the situation, she signed all discharge paper works, all belongings taken, inventory list signed by patient. Health teaching provided, verbalized understanding and gratitude. Skin assessment done prior to discharge, skin intact, warm to touch, no pallor or cyanosis noted. Patient has gtube, no redness, no unusual odor, no unusual drainage noted, no s/s of bleeding at this time, she also has sacral scar with foam dressings, left thigh previous cellulitis, none noted at this time, unable to take photos patient was agitated and was restless, explained risks and benefits and hospital protocol thrice, still refused, respected patients wishes. PICC line removed prior to discharge, complete and intact, no excessive bleeding noted, site covered with dry dressing. Bautista catheter removed per MD order, no hematuria, no sediments noted, bautista bag noted to have yellowish clear urine. Name wristband removed prior to discharge, surgical mask provided for patient to use. Nelly picked up patient via [facility] left unit at 1645pm stable condition, exit care documents handed to Nelly staffs.
== END 2021-05-22 16:30 | DRG 853 ==
LOC: ER 23:04 → ICU 05-02 05:14 → MED 05-11 11:10 → TELE 05-11 15:42 → MED 05-12 11:23
PROVIDERS: ATTEND Internal Medicine
PROC: 0DQ94ZZ Repair Duodenum, Percutaneous Endoscopic Approach (ICD-10-PCS; principal; 2021-05-02)
PROC: 5A1945Z Respiratory Ventilation, 24-96 Consecutive Hours (ICD-10-PCS; 2021-05-02)
PROC: 0BH18EZ Insertion of Endotracheal Airway into Trachea, Via Natural or Artificial Opening Endoscopic (ICD-10-PCS; 2021-05-02)
PROC: 02HV33Z Insertion of Infusion Device into Superior Vena Cava, Percutaneous Approach (ICD-10-PCS; 2021-05-02)
PROC: B548ZZA Ultrasonography of Superior Vena Cava, Guidance (ICD-10-PCS; 2021-05-02)
PROC: 0W9F40Z Drainage of Abdominal Wall with Drainage Device, Percutaneous Endoscopic Approach (ICD-10-PCS; 2021-05-02)
PROC: 30233N1 Transfusion of Nonautologous Red Blood Cells into Peripheral Vein, Percutaneous Approach (ICD-10-PCS; 2021-05-03)
PROC: 5A1945Z Respiratory Ventilation, 24-96 Consecutive Hours (ICD-10-PCS; 2021-05-06)
PROC: 0BH17EZ Insertion of Endotracheal Airway into Trachea, Via Natural or Artificial Opening (ICD-10-PCS; 2021-05-06)
PROC: 0W9B3ZZ Drainage of Left Pleural Cavity, Percutaneous Approach (ICD-10-PCS; 2021-05-07)
PROC: 0JBM0ZZ Excision of Left Upper Leg Subcutaneous Tissue and Fascia, Open Approach (ICD-10-PCS; 2021-05-18)
PROC: 0DH63UZ Insertion of Feeding Device into Stomach, Percutaneous Approach (ICD-10-PCS; 2021-05-21)
DX: A41.9 Sepsis, unspecified organism (principal); K26.5 Chronic or unspecified duodenal ulcer with perforation; K65.9 Peritonitis, unspecified; J96.01 Acute respiratory failure with hypoxia; J69.0 Pneumonitis due to inhalation of food and vomit; D62 Acute posthemorrhagic anemia; L03.116 Cellulitis of left lower limb; G93.40 Encephalopathy, unspecified; N39.0 Urinary tract infection, site not specified; J90 Pleural effusion, not elsewhere classified; J98.11 Atelectasis; M48.56XA Collapsed vertebra, not elsewhere classified, lumbar region, initial encounter for fracture; K91.89 Other postprocedural complications and disorders of digestive system; K56.7 Ileus, unspecified; I25.10 Atherosclerotic heart disease of native coronary artery without angina pectoris; S70.12XA Contusion of left thigh, initial encounter; Z20.822 Contact with and (suspected) exposure to COVID-19; X58.XXXA Exposure to other specified factors, initial encounter; Y92.9 Unspecified place or not applicable; I10 Essential (primary) hypertension; E87.6 Hypokalemia; D50.9 Iron deficiency anemia, unspecified; I70.0 Atherosclerosis of aorta; D75.839 Thrombocytosis, unspecified; E11.65 Type 2 diabetes mellitus with hyperglycemia; E83.39 Other disorders of phosphorus metabolism; E83.42 Hypomagnesemia; K29.70 Gastritis, unspecified, without bleeding; R13.10 Dysphagia, unspecified; M85.80 Other specified disorders of bone density and structure, unspecified site; Y95 Nosocomial condition; Z79.4 Long term (current) use of insulin; Y83.8 Other surgical procedures as the cause of abnormal reaction of the patient, or of later complication, without mention of misadventure at the time of the procedure; Y92.89 Other specified places as the place of occurrence of the external cause
CPT/HCPCS: 31720; 36415; 36600; 43246; 71045-TC; 71250-TC; 74018; 74246-TC; 80048-TC; 80053-TC; 80061-TC; 80076-TC; 80202-TC; 81001; 82040-TC; 82272-TC; 82330; 82436-TC; 82728-TC; 82803-TC; 82962-TC; 83540-TC; 83690-TC; 83735-TC; 84100-TC; 84132-TC; 84133-TC; 84134-TC; 84300-TC; 84439-TC; 84443-TC; 84484-TC; 85025-TC; 85610-TC; 85730-TC; 86850-TC; 87040-TC; 87070-TC; 87081-TC; 87086-TC; 89051-TC; 92526; 92611-TC; 93307-TC; 94003-TC; 94760-TC; 94762-TC; 94799-TC; 97110-TC; 97112-TC; 97530-TC; A4216; A4217; A6253; A6403; A6407; A9563; C9113; C9803; G0378; J0171; J0330; J0690; J1100; J1170; J1450; J1720; J1815; J1940; J2060; J2185; J2250; J2370; J2405; J2543; J2704; J2916; J2930; J3370; J3475; J3480; J3490; J7030; J7042; J7050; J7060; J7120; P9016; Q9963; Q9967